=== PATIENT | male | born 1955 | race Caucasian/White ===

== ENCOUNTER 2021-04-15 22:17 | Inpatient (IN) | payer OTHER, MEDICAID, SELFPAY ==
[~2021-04-15] VITALS: Ht 172.7 cm; Wt 80.9 kg
[2021-04-15 22:17] VITALS: BP_SYST 131
[2021-04-15] MEDS ORDERED: NACL 0.9% 1,000 ML IV ONE (22:30)
[2021-04-15 23:05] LABS: CALCIUM 8.5 mg/dL (8.4-11.0); CREATININE 1.45 mg/dL (0.55-1.30); POTASSIUM 3.9 mmol/L (3.5-5.1)
[2021-04-15 23:09] LABS: INR 1.2 (0.80-1.20)
[2021-04-15 23:11] LABS: ALBUMIN 1.8 g/dL (3.4-4.8); TOTAL BILIRUBIN 2.2 mg/dL (0.0-1.0)
[2021-04-15 23:14] LABS: BASOPHILS # (AUTO) 0.1 K/uL (0.0-0.2); BASOPHILS % (AUTO) 1.4 % (0.0-2.0); EOSINOPHILS # (AUTO) 0.1 K/uL (0.0-0.4); EOSINOPHILS % (AUTO) 0.9 % (0.0-4.0); HEMATOCRIT 32.8 % (36-54); HEMOGLOBIN 11.1 g/dL (14.0-18.0); LYMPHOCYTES # (AUTO) 0.5 K/uL (1.0-5.5); LYMPHOCYTES % (AUTO) 7.3 % (20.5-51.5); MEAN CORPUSCULAR HEMOGLOBIN 33 pg (27-31); MEAN CORPUSCULAR HGB CONC 34 % (32-36); MEAN CORPUSCULAR VOLUME 98 fL (79.0-98.0); MONOCYTES # (AUTO) 0.4 K/uL (0.0-1.0); MONOCYTES % (AUTO) 6.6 % (1.7-9.3); NEUTROPHILS # (AUTO) 5.4 K/uL (1.8-7.7); NEUTROPHILS % (AUTO) 83.8 % (40.0-70.0); PLATELET COUNT (AUTO) 146 K/uL (130-430); RED BLOOD CELL COUNT(AUTO) 3.37 MIL/uL (4.2-6.2); WHITE BLOOD COUNT (AUTO) 6.4 K/uL (4.8-10.8)
[2021-04-15] MEDS ORDERED: ACETAMINOPHEN 650 MG SUPP.RECT RC ONE (23:15)
[2021-04-15 23:16] LABS: PROTHROMBIN TIME 12.8 SECS (9.5-12.5)
[2021-04-16] VITALS (12 sets, daily range): BP systolic 88–112
[2021-04-16] MEDS ORDERED: NACL 0.9% 1,000 ML IV ONE (00:15)
[2021-04-16] MEDS ORDERED: cefTRIAXone 1 GM IVPB PREMIX 50 ML IV ONE (00:15)
[2021-04-16] MEDS ORDERED: AZITHROMYCIN 500 MG in NS 250 ML IV ONE (00:15)
[2021-04-16] MEDS ORDERED: AZITHROMYCIN 500 MG/VIAL (ZITHROMAX) IV ONE (00:24)
[2021-04-16 00:40] LABS: BILIRUBIN,URINE NEGATIVE (NEGATIVE); BLOOD, URINE 2+ (NEGATIVE); CLARITY/URINE TURBID (CLEAR); COLOR,URINE YELLOW (YELLOW); GLUCOSE,URINE 3+ (NEGATIVE); KETONES,URINE NEGATIVE (NEGATIVE); LEUKOCYTE ESTERASE ,URINE 2+ (NEGATIVE); NITRITE, URINE NEGATIVE (NEGATIVE); PH,URINE 5.5 (5.0-8.0); PROTEIN URINE NEGATIVE (NEGATIVE)
[2021-04-16 00:49] LABS: RBC,URINE 20-50 /HPF (0-3); WBC,URINE 20-50 /HPF (0-3)
[2021-04-16 00:50] LABS: BACTERIA,URINE MODERATE /HPF (None Seen); YEAST,URINE Moderate /HPF (None Seen)
[2021-04-16] MEDS ORDERED: LACT10SO6 PO (02:25)
[2021-04-16] MEDS ORDERED: ROCPM1 IV (02:25)
[2021-04-16] MEDS ORDERED: CALMO120 TP (02:25)
[2021-04-16] MEDS ORDERED: ZINC50TA69 PO (02:25)
[2021-04-16] MEDS ORDERED: OXYC10TA56 PO (02:25)
[2021-04-16] MEDS ORDERED: PYRI50CA PO (02:25)
[2021-04-16] MEDS ORDERED: PRO40 PO (02:25)
[2021-04-16] MEDS ORDERED: EMPA25TA PO (02:25)
[2021-04-16] MEDS ORDERED: INSU100V9 SQ (02:25)
[2021-04-16] MEDS ORDERED: FURO-149 PO (02:25)
[2021-04-16] MEDS ORDERED: FERROUS SULFATE PO (02:25)
[2021-04-16] MEDS ORDERED: FOLI-43 PO (02:25)
[2021-04-16] MEDS ORDERED: ASCO500T20 PO (02:25)
[2021-04-16] MEDS ORDERED: ATOR40TA68 PO (02:25)
[2021-04-16] MEDS ORDERED: RIFA550T5 PO (02:25)
[2021-04-16] MEDS ORDERED: LIB10 PO (02:25)
[2021-04-16] MEDS ORDERED: SPIR50TA5 PO (02:25)
[2021-04-16] MEDS ORDERED: SSREG SUBCUT (02:25)
[2021-04-16] MEDS ORDERED: PIPERACILLIN/TAZO 3.375/DEX-IS 50 ML IV SCH (02:30)
[2021-04-16] MEDS ORDERED: LACTULOSE 20 GM/30 ML UDC RC ONE (02:45)
[2021-04-16] MEDS: LACTULOSE 20 GM/30 ML UDC PO SCH ×4 (02:45→21:20)
[2021-04-16] MEDS ORDERED: LACTULOSE 20 GM/30 ML UDC ONE ×2 (03:37→03:39)
[2021-04-16] MEDS ORDERED: PIPERACILLIN/TAZOBACTAM 3.375 GM/VIAL (ZOSYN) IV ONE ×2 (03:42→08:44)
[2021-04-16] MEDS: NACL 0.9% 1,000 ML IV SCH ×3 (03:48→22:30)
[2021-04-16] MEDS: PIPERACILLIN/TAZO 3.375/DEX-IS 50 ML IV SCH ×4 (03:50→21:20)
[2021-04-16 08:58] LABS: BASOPHILS % (AUTO) 0.3 % (0.0-2.0); EOSINOPHILS # (AUTO) 0.1 K/uL (0.0-0.4); EOSINOPHILS % (AUTO) 1.2 % (0.0-4.0); HEMATOCRIT 29.4 % (36-54); HEMOGLOBIN 9.8 g/dL (14.0-18.0); LYMPHOCYTES # (AUTO) 0.6 K/uL (1.0-5.5); LYMPHOCYTES % (AUTO) 6.6 % (20.5-51.5); MEAN CORPUSCULAR HEMOGLOBIN 33 pg (27-31); MEAN CORPUSCULAR HGB CONC 33 % (32-36); MEAN CORPUSCULAR VOLUME 99 fL (79.0-98.0); MONOCYTES # (AUTO) 0.7 K/uL (0.0-1.0); MONOCYTES % (AUTO) 7.3 % (1.7-9.3); NEUTROPHILS # (AUTO) 7.7 K/uL (1.8-7.7); NEUTROPHILS % (AUTO) 84.6 % (40.0-70.0); PLATELET COUNT (AUTO) 107 K/uL (130-430); RED BLOOD CELL COUNT(AUTO) 2.99 MIL/uL (4.2-6.2); RED CELL DISTRIBUTION WIDTH 19.5 % (9.0-15.0); WHITE BLOOD COUNT (AUTO) 9.2 K/uL (4.8-10.8)
[2021-04-16] MEDS: RIFAXIMIN 550 MG TABLET PO SCH ×2 (09:00→21:20)
[2021-04-16 09:13] LABS: ALBUMIN 1.5 g/dL (3.4-4.8); CALCIUM 7.8 mg/dL (8.4-11.0); CREATININE 1.35 mg/dL (0.55-1.30); TOTAL BILIRUBIN 2.1 mg/dL (0.0-1.0)
[2021-04-16] MEDS ORDERED: PANTOPRAZOLE SODIUM 40 MG/VIAL (PROTONIX) IVP ONE (15:00)
[2021-04-16] MEDS ORDERED: NOREPINEPHRINE BITARTRATE 4 MG in NS 246 ML IV PRN (17:45)
[2021-04-16] MEDS ORDERED: NS 500 ML IV ONE (17:45)
[2021-04-17] VITALS (24 sets, daily range): BP systolic 94–120
[2021-04-17] MEDS: PIPERACILLIN/TAZO 3.375/DEX-IS 50 ML IV SCH ×4 (03:02→20:17)
[2021-04-17] MEDS: NACL 0.9% 1,000 ML IV SCH ×2 (04:50→15:20)
[2021-04-17] MEDS: LACTULOSE 20 GM/30 ML UDC PO SCH ×3 (08:21→20:17)
[2021-04-17] MEDS: PANTOPRAZOLE SODIUM 40 MG/VIAL (PROTONIX) IVP SCH (08:21)
[2021-04-17] MEDS: RIFAXIMIN 550 MG TABLET PO SCH ×2 (08:21→20:17)
[2021-04-17] MEDS ORDERED: RIFAXIMIN 550 MG TABLET PO ONE (14:15)
[2021-04-18] VITALS (24 sets, daily range): BP systolic 93–125
[2021-04-18] MEDS: NACL 0.9% 1,000 ML IV SCH (01:46)
[2021-04-18] MEDS: PIPERACILLIN/TAZO 3.375/DEX-IS 50 ML IV SCH ×2 (01:46→08:00)
[2021-04-18 07:33] LABS: BASOPHILS % (AUTO) 0.3 % (0.0-2.0); EOSINOPHILS # (AUTO) 0.2 K/uL (0.0-0.4); EOSINOPHILS % (AUTO) 2.4 % (0.0-4.0); HEMATOCRIT 27.3 % (36-54); LYMPHOCYTES # (AUTO) 0.8 K/uL (1.0-5.5); LYMPHOCYTES % (AUTO) 12.3 % (20.5-51.5); MEAN CORPUSCULAR HEMOGLOBIN 33 pg (27-31); MEAN CORPUSCULAR HGB CONC 33 % (32-36); MEAN CORPUSCULAR VOLUME 100 fL (79.0-98.0); MONOCYTES # (AUTO) 0.3 K/uL (0.0-1.0); MONOCYTES % (AUTO) 5.4 % (1.7-9.3); NEUTROPHILS # (AUTO) 5.1 K/uL (1.8-7.7); NEUTROPHILS % (AUTO) 79.6 % (40.0-70.0); PLATELET COUNT (AUTO) 96 K/uL (130-430); RED BLOOD CELL COUNT(AUTO) 2.73 MIL/uL (4.2-6.2); RED CELL DISTRIBUTION WIDTH 19.4 % (9.0-15.0); WHITE BLOOD COUNT (AUTO) 6.4 K/uL (4.8-10.8)
[2021-04-18 08:01] LABS: ALBUMIN 1.4 g/dL (3.4-4.8); CALCIUM 8.1 mg/dL (8.4-11.0); CREATININE 1.05 mg/dL (0.55-1.30); POTASSIUM 3.1 mmol/L (3.5-5.1); TOTAL BILIRUBIN 1.9 mg/dL (0.0-1.0)
[2021-04-18] MEDS: PANTOPRAZOLE SODIUM 40 MG/VIAL (PROTONIX) IVP SCH (08:32)
[2021-04-18] MEDS: RIFAXIMIN 550 MG TABLET PO SCH ×2 (08:32→21:06)
[2021-04-18] MEDS: LACTULOSE 20 GM/30 ML UDC PO SCH ×3 (08:33→21:05)
[2021-04-18] MEDS: ACETAMINOPHEN 325 MG TABLET PO PRN (08:36)
[2021-04-18] MEDS ORDERED: POTASSIUM CHLORIDE 40 MEQ in D5W 250 ML IV ONE (10:30)
[2021-04-18] MEDS: D5W 1,000 ML IV SCH ×2 (11:12→21:05)
[2021-04-18] MEDS: MEROPENEM 1 GM in NS 100 ML IV SCH ×2 (16:34→21:06)
[2021-04-19] VITALS (20 sets, daily range): BP systolic 98–127
[2021-04-19] MEDS: MEROPENEM 1 GM in NS 100 ML IV SCH ×3 (05:18→22:00)
[2021-04-19 06:36] LABS: BASOPHILS % (AUTO) 0.4 % (0.0-2.0); EOSINOPHILS # (AUTO) 0.2 K/uL (0.0-0.4); EOSINOPHILS % (AUTO) 6.1 % (0.0-4.0); HEMATOCRIT 26.7 % (36-54); HEMOGLOBIN 8.7 g/dL (14.0-18.0); LYMPHOCYTES # (AUTO) 0.6 K/uL (1.0-5.5); LYMPHOCYTES % (AUTO) 15.5 % (20.5-51.5); MEAN CORPUSCULAR HEMOGLOBIN 33 pg (27-31); MEAN CORPUSCULAR HGB CONC 33 % (32-36); MEAN CORPUSCULAR VOLUME 101 fL (79.0-98.0); MONOCYTES # (AUTO) 0.3 K/uL (0.0-1.0); MONOCYTES % (AUTO) 8.2 % (1.7-9.3); NEUTROPHILS # (AUTO) 2.8 K/uL (1.8-7.7); NEUTROPHILS % (AUTO) 69.8 % (40.0-70.0); PLATELET COUNT (AUTO) 91 K/uL (130-430); RED BLOOD CELL COUNT(AUTO) 2.65 MIL/uL (4.2-6.2); RED CELL DISTRIBUTION WIDTH 19.6 % (9.0-15.0)
[2021-04-19 07:27] LABS: ALBUMIN 1.4 g/dL (3.4-4.8); CALCIUM 8.2 mg/dL (8.4-11.0); CREATININE 1.07 mg/dL (0.55-1.30); POTASSIUM 3.1 mmol/L (3.5-5.1); TOTAL BILIRUBIN 1.6 mg/dL (0.0-1.0)
[2021-04-19] MEDS: D5W 1,000 ML IV SCH ×2 (07:35→16:30)
[2021-04-19] MEDS: LACTULOSE 20 GM/30 ML UDC PO SCH ×2 (08:21→23:57)
[2021-04-19] MEDS: PANTOPRAZOLE SODIUM 40 MG/VIAL (PROTONIX) IVP SCH (08:21)
[2021-04-19] MEDS: RIFAXIMIN 550 MG TABLET PO SCH ×2 (08:22→23:55)
[2021-04-19] MEDS ORDERED: POTASSIUM CHLORIDE 40 MEQ in NS 250 ML IV ONE (15:45)
[2021-04-19] MEDS ORDERED: MEROPENEM 1 GM VIAL IV ONE (23:58)
[2021-04-20] MEDS ORDERED: KCL 40 mEq in 100 mL (PREMIX) 100 ML IV ONE (00:20)
[2021-04-20 02:15] VITALS: BP_SYST 127
[2021-04-20] MEDS: D5W 1,000 ML IV SCH ×3 (02:30→23:23)
[2021-04-20] MEDS ORDERED: MEROPENEM 1 GM VIAL IV ONE (06:22)
[2021-04-20] MEDS: MEROPENEM 1 GM in NS 100 ML IV SCH ×3 (06:38→23:23)
[2021-04-20 08:00] VITALS: BP_SYST 132
[2021-04-20] MEDS: RIFAXIMIN 550 MG TABLET PO SCH ×2 (08:33→23:22)
[2021-04-20] MEDS: PANTOPRAZOLE SODIUM 40 MG/VIAL (PROTONIX) IVP SCH (08:33)
[2021-04-20] MEDS: LACTULOSE 20 GM/30 ML UDC PO SCH ×2 (08:33→23:22)
[2021-04-20 11:25] VITALS: BP_SYST 122
[2021-04-20 15:24] VITALS: BP_SYST 119
[2021-04-21 00:48] VITALS: BP_SYST 124
[2021-04-21] MEDS: MEROPENEM 1 GM in NS 100 ML IV SCH ×3 (05:20→22:33)
[2021-04-21 06:53] LABS: HEMATOCRIT 28.8 % (36-54); HEMOGLOBIN 9.2 g/dL (14.0-18.0); MEAN CORPUSCULAR HEMOGLOBIN 33 pg (27-31); MEAN CORPUSCULAR HGB CONC 32 % (32-36); MEAN CORPUSCULAR VOLUME 103 fL (79.0-98.0); RED BLOOD CELL COUNT(AUTO) 2.79 MIL/uL (4.2-6.2); RED CELL DISTRIBUTION WIDTH 20.5 % (9.0-15.0); WHITE BLOOD COUNT (AUTO) 2.3 K/uL (4.8-10.8)
[2021-04-21 08:00] VITALS: BP_SYST 121
[2021-04-21 08:41] LABS: PLATELET COUNT (AUTO) 45 K/uL (130-430)
[2021-04-21] MEDS: RIFAXIMIN 550 MG TABLET PO SCH ×2 (09:16→22:32)
[2021-04-21] MEDS: PANTOPRAZOLE SODIUM 40 MG/VIAL (PROTONIX) IVP SCH (09:16)
[2021-04-21] MEDS: LACTULOSE 20 GM/30 ML UDC PO SCH ×2 (09:16→22:32)
[2021-04-21] MEDS: D5W 1,000 ML IV SCH ×2 (09:18→18:00)
[2021-04-21 09:39] LABS: ALBUMIN 1.3 g/dL (3.4-4.8); CALCIUM 8.3 mg/dL (8.4-11.0); CREATININE 1.11 mg/dL (0.55-1.30); POTASSIUM 3.4 mmol/L (3.5-5.1)
[2021-04-21 11:19] LABS: BASOPHILS % (MANUAL) 0 % (0-2); EOSINOPHILS % (MANUAL) 3 % (0-7); LYMPHOCYTES % (MANUAL) 42 % (20-46); MONOCYTES % (MANUAL) 5 % (0-11)
[2021-04-21 11:26] VITALS: BP_SYST 123
[2021-04-21 15:36] VITALS: BP_SYST 120
[2021-04-21 20:00] VITALS: BP_SYST 111
[2021-04-22] VITALS (7 sets, daily range): BP systolic 104–136
[2021-04-22] MEDS: 0.45% NACL 1,000 ML IV SCH ×3 (01:07→23:00)
[2021-04-22] MEDS: MEROPENEM 1 GM in NS 100 ML IV SCH ×3 (06:25→22:06)
[2021-04-22] MEDS: PANTOPRAZOLE SODIUM 40 MG/VIAL (PROTONIX) IVP SCH (09:00)
[2021-04-22] MEDS: LACTULOSE 20 GM/30 ML UDC PO SCH ×2 (09:00→22:06)
[2021-04-22] MEDS: RIFAXIMIN 550 MG TABLET PO SCH ×2 (09:00→22:06)
[2021-04-22 11:07] LABS: BASOPHILS % (AUTO) 0.7 % (0.0-2.0); EOSINOPHILS # (AUTO) 0.2 K/uL (0.0-0.4); EOSINOPHILS % (AUTO) 6.1 % (0.0-4.0); HEMATOCRIT 29.4 % (36-54); HEMOGLOBIN 9.4 g/dL (14.0-18.0); LYMPHOCYTES # (AUTO) 0.7 K/uL (1.0-5.5); LYMPHOCYTES % (AUTO) 24.3 % (20.5-51.5); MEAN CORPUSCULAR HEMOGLOBIN 33 pg (27-31); MEAN CORPUSCULAR HGB CONC 32 % (32-36); MEAN CORPUSCULAR VOLUME 103 fL (79.0-98.0); MONOCYTES # (AUTO) 0.2 K/uL (0.0-1.0); MONOCYTES % (AUTO) 5.7 % (1.7-9.3); NEUTROPHILS # (AUTO) 1.8 K/uL (1.8-7.7); NEUTROPHILS % (AUTO) 63.2 % (40.0-70.0); RED BLOOD CELL COUNT(AUTO) 2.84 MIL/uL (4.2-6.2); RED CELL DISTRIBUTION WIDTH 20.2 % (9.0-15.0); WHITE BLOOD COUNT (AUTO) 2.9 K/uL (4.8-10.8)
[2021-04-22 11:24] LABS: CREATININE 1.29 mg/dL (0.55-1.30)
[2021-04-22 11:27] LABS: ALBUMIN 1.4 g/dL (3.4-4.8); TOTAL BILIRUBIN 1.9 mg/dL (0.0-1.0)
[2021-04-22 11:33] LABS: PLATELET COUNT (AUTO) 45 K/uL (130-430)
[2021-04-22] MEDS ORDERED: GLUCOSE (DEXTROSE) ORAL GEL -Adults PO PRN (13:52)
[2021-04-22] MEDS ORDERED: POTASSIUM CHLORIDE 40 MEQ in NS 250 ML IV ONE (14:00)
[2021-04-22] MEDS: INSULIN REGULAR, HUMAN 100 UNITS/ML, 10 ML VIAL (humuLIN R) SUBCUT PRN ×2 (17:56→18:19)
[2021-04-23] VITALS (11 sets, daily range): BP systolic 84–120
[2021-04-23] MEDS: INSULIN REGULAR, HUMAN 100 UNITS/ML, 10 ML VIAL (humuLIN R) SUBCUT PRN ×3 (00:44→12:18)
[2021-04-23] MEDS: ACETAMINOPHEN 325 MG TABLET PO PRN ×3 (00:49→12:44)
[2021-04-23] MEDS: MEROPENEM 1 GM in NS 100 ML IV SCH ×3 (06:42→21:40)
[2021-04-23] MEDS: LACTULOSE 20 GM/30 ML UDC PO SCH ×3 (09:09→21:05)
[2021-04-23] MEDS: PANTOPRAZOLE SODIUM 40 MG/VIAL (PROTONIX) IVP SCH (09:09)
[2021-04-23] MEDS: RIFAXIMIN 550 MG TABLET PO SCH ×2 (09:09→21:05)
[2021-04-23] MEDS: ALBUTEROL SULFATE 0.083% 2.5 MG/3 ML VIAL.NEB INH PRN ×2 (10:47→13:42)
[2021-04-23 11:06] LABS: BASOPHILS # (AUTO) 0.1 K/uL (0.0-0.2); BASOPHILS % (AUTO) 0.5 % (0.0-2.0); EOSINOPHILS # (AUTO) 0.1 K/uL (0.0-0.4); EOSINOPHILS % (AUTO) 0.6 % (0.0-4.0); HEMOGLOBIN 8.5 g/dL (14.0-18.0); LYMPHOCYTES % (AUTO) 9.9 % (20.5-51.5); MEAN CORPUSCULAR HEMOGLOBIN 33 pg (27-31); MEAN CORPUSCULAR HGB CONC 32 % (32-36); MEAN CORPUSCULAR VOLUME 104 fL (79.0-98.0); MONOCYTES # (AUTO) 0.3 K/uL (0.0-1.0); MONOCYTES % (AUTO) 2.8 % (1.7-9.3); NEUTROPHILS # (AUTO) 8.5 K/uL (1.8-7.7); NEUTROPHILS % (AUTO) 86.2 % (40.0-70.0); RED BLOOD CELL COUNT(AUTO) 2.58 MIL/uL (4.2-6.2); WHITE BLOOD COUNT (AUTO) 9.9 K/uL (4.8-10.8)
[2021-04-23 11:22] LABS: CREATININE 1.99 mg/dL (0.55-1.30); POTASSIUM 4.5 mmol/L (3.5-5.1)
[2021-04-23 11:24] LABS: ALBUMIN 1.2 g/dL (3.4-4.8); TOTAL BILIRUBIN 1.8 mg/dL (0.0-1.0)
[2021-04-23 11:36] LABS: PLATELET COUNT (AUTO) 46 K/uL (130-430)
[2021-04-23] MEDS: 0.45% NACL 1,000 ML IV SCH ×2 (13:08→16:17)
[2021-04-23] MEDS ORDERED: INSULIN REGULAR, HUMAN 100 UNITS in NS 99 ML IV PRN ×2 (14:15)
[2021-04-23] MEDS ORDERED: NOREPINEPHRINE 4 MG/4 ML VIAL IV ONE ×2 (14:35→14:40)
[2021-04-23] MEDS: INSULIN REGULAR, HUMAN 100 UNITS in NS 99 ML IV PRN ×4 (15:40→21:19)
[2021-04-23] MEDS ORDERED: ALBUMIN HUMAN 5% 250 ML IV ONE ×2 (16:15→17:15)
[2021-04-23] MEDS: NOREPINEPHRINE BITARTRATE 16 MG in NS 234 ML IV PRN (16:20)
[2021-04-23 17:03] LABS: BASOPHILS # (AUTO) 0.1 K/uL (0.0-0.2); BASOPHILS % (AUTO) 0.5 % (0.0-2.0); EOSINOPHILS % (AUTO) 0.3 % (0.0-4.0); HEMATOCRIT 28.4 % (36-54); HEMOGLOBIN 8.9 g/dL (14.0-18.0); LYMPHOCYTES # (AUTO) 0.8 K/uL (1.0-5.5); LYMPHOCYTES % (AUTO) 5.2 % (20.5-51.5); MEAN CORPUSCULAR HEMOGLOBIN 33 pg (27-31); MEAN CORPUSCULAR HGB CONC 31 % (32-36); MEAN CORPUSCULAR VOLUME 104 fL (79.0-98.0); MONOCYTES # (AUTO) 0.3 K/uL (0.0-1.0); MONOCYTES % (AUTO) 1.9 % (1.7-9.3); NEUTROPHILS # (AUTO) 13.8 K/uL (1.8-7.7); NEUTROPHILS % (AUTO) 92.1 % (40.0-70.0); PLATELET COUNT (AUTO) 61 K/uL (130-430); RED BLOOD CELL COUNT(AUTO) 2.74 MIL/uL (4.2-6.2); RED CELL DISTRIBUTION WIDTH 20.1 % (9.0-15.0)
[2021-04-23] MEDS ORDERED: INSULIN REGULAR, HUMAN 100 UNITS/ML, 10 ML VIAL IVP ONE (21:00)
[2021-04-24] VITALS (22 sets, daily range): BP systolic 96–126
[2021-04-24] MEDS: 0.45% NACL 1,000 ML IV SCH (01:15)
[2021-04-24] MEDS ORDERED: VANCOMYCIN HCL 1 GM/NS PREMIX 250 ML IV ONE (01:30)
[2021-04-24] MEDS ORDERED: VANCOMYCIN HCL 500 MG/VIAL IV ONE ×2 (03:22→04:08)
[2021-04-24] MEDS ORDERED: VANCOMYCIN HCL 1000 MG/VIAL IV ONE (04:03)
[2021-04-24] MEDS: NOREPINEPHRINE BITARTRATE 16 MG in NS 234 ML IV PRN (04:46)
[2021-04-24] MEDS: MEROPENEM 1 GM in NS 100 ML IV SCH ×3 (06:04→22:56)
[2021-04-24 06:53] LABS: BASOPHILS % (AUTO) 0.4 % (0.0-2.0); EOSINOPHILS # (AUTO) 0.6 K/uL (0.0-0.4); EOSINOPHILS % (AUTO) 4.2 % (0.0-4.0); HEMATOCRIT 23.4 % (36-54); HEMOGLOBIN 7.6 g/dL (14.0-18.0); LYMPHOCYTES # (AUTO) 1.5 K/uL (1.0-5.5); LYMPHOCYTES % (AUTO) 11.3 % (20.5-51.5); MEAN CORPUSCULAR HEMOGLOBIN 32 pg (27-31); MEAN CORPUSCULAR HGB CONC 33 % (32-36); MEAN CORPUSCULAR VOLUME 99 fL (79.0-98.0); MONOCYTES # (AUTO) 0.4 K/uL (0.0-1.0); NEUTROPHILS # (AUTO) 10.9 K/uL (1.8-7.7); NEUTROPHILS % (AUTO) 81.1 % (40.0-70.0); PLATELET COUNT (AUTO) 52 K/uL (130-430); RED BLOOD CELL COUNT(AUTO) 2.36 MIL/uL (4.2-6.2); RED CELL DISTRIBUTION WIDTH 19.6 % (9.0-15.0); WHITE BLOOD COUNT (AUTO) 13.4 K/uL (4.8-10.8)
[2021-04-24] MEDS: ALBUTEROL SULFATE 0.083% 2.5 MG/3 ML VIAL.NEB INH PRN (07:54)
[2021-04-24] MEDS: PANTOPRAZOLE SODIUM 40 MG/VIAL (PROTONIX) IVP SCH (08:48)
[2021-04-24] MEDS: RIFAXIMIN 550 MG TABLET PO SCH (08:48)
[2021-04-24] MEDS: LACTULOSE 20 GM/30 ML UDC PO SCH ×3 (08:48→21:12)
[2021-04-24 09:00] LABS: POTASSIUM 3.1 mmol/L (3.5-5.1)
[2021-04-24] MEDS: INSULIN REGULAR, HUMAN 100 UNITS in NS 99 ML IV PRN ×6 (09:01→15:22)
[2021-04-24 09:14] LABS: INR 1.7 (0.80-1.20); PROTHROMBIN TIME 16.9 SECS (9.5-12.5)
[2021-04-24 10:12] LABS: ALBUMIN 1.7 g/dL (3.4-4.8); CALCIUM 9.1 mg/dL (8.4-11.0); CREATININE 1.66 mg/dL (0.55-1.30); TOTAL BILIRUBIN 2.3 mg/dL (0.0-1.0)
[2021-04-24] MEDS: KCL 40 mEq in D5W 1000 mL 1,000 ML IV SCH (12:19)
[2021-04-24] MEDS: VANCOMYCIN HCL 1,250 MG in NS 250 ML IV SCH (12:20)
[2021-04-25] VITALS (25 sets, daily range): BP systolic 92–123
[2021-04-25] MEDS: KCL 40 mEq in D5W 1000 mL 1,000 ML IV SCH ×2 (01:06→07:15)
[2021-04-25 07:01] LABS: BASOPHILS % (AUTO) 0.6 % (0.0-2.0); EOSINOPHILS # (AUTO) 0.6 K/uL (0.0-0.4); EOSINOPHILS % (AUTO) 6.6 % (0.0-4.0); HEMATOCRIT 22.6 % (36-54); HEMOGLOBIN 7.5 g/dL (14.0-18.0); LYMPHOCYTES # (AUTO) 1.5 K/uL (1.0-5.5); LYMPHOCYTES % (AUTO) 16.8 % (20.5-51.5); MEAN CORPUSCULAR HEMOGLOBIN 33 pg (27-31); MEAN CORPUSCULAR HGB CONC 33 % (32-36); MEAN CORPUSCULAR VOLUME 100 fL (79.0-98.0); MONOCYTES # (AUTO) 0.4 K/uL (0.0-1.0); NEUTROPHILS # (AUTO) 6.2 K/uL (1.8-7.7); PLATELET COUNT (AUTO) 52 K/uL (130-430); RED BLOOD CELL COUNT(AUTO) 2.27 MIL/uL (4.2-6.2); RED CELL DISTRIBUTION WIDTH 19.8 % (9.0-15.0); WHITE BLOOD COUNT (AUTO) 8.7 K/uL (4.8-10.8)
[2021-04-25] MEDS: ALBUTEROL SULFATE 0.083% 2.5 MG/3 ML VIAL.NEB INH PRN (07:44)
[2021-04-25 08:46] LABS: CREATININE 1.25 mg/dL (0.55-1.30); PHOSPHORUS 1.6 mg/dL (2.7-4.5); POTASSIUM 4.3 mmol/L (3.5-5.1)
[2021-04-25] MEDS: PANTOPRAZOLE SODIUM 40 MG/VIAL (PROTONIX) IVP SCH (09:34)
[2021-04-25] MEDS: LACTULOSE 20 GM/30 ML UDC PO SCH ×3 (09:34→21:26)
[2021-04-25 09:50] LABS: ERYTHROCYTE SEDIMENTATION RATE 60 MM/HR (0-15)
[2021-04-25 10:04] LABS: BILIRUBIN,URINE NEGATIVE (NEGATIVE); BLOOD, URINE 2+ (NEGATIVE); CLARITY/URINE CLEAR (CLEAR); COLOR,URINE YELLOW (YELLOW); GLUCOSE,URINE TRACE (NEGATIVE); KETONES,URINE TRACE (NEGATIVE); LEUKOCYTE ESTERASE ,URINE NEGATIVE (NEGATIVE); NITRITE, URINE NEGATIVE (NEGATIVE); PROTEIN URINE 1+ (NEGATIVE); UROBILINOGEN,URINE 0.2 (0.2-1.0)
[2021-04-25 10:12] LABS: BACTERIA,URINE FEW /HPF (None Seen); MUCUS,URINE 1+ /LPF (None Seen); YEAST,URINE Moderate /HPF (None Seen)
[2021-04-25] MEDS ORDERED: INSULIN REGULAR, HUMAN 100 UNITS/ML, 10 ML VIAL (humuLIN R) SUBCUT PRN (11:45)
[2021-04-25 12:09] LABS: C-REACTIVE PROTEIN QUANT 12.6 mg/dL (0-0.5)
[2021-04-25] MEDS ORDERED: K PHOS 15 MM in NS 250 ML IV ONE (13:00)
[2021-04-25] MEDS: INSULIN NPH 100 UNITS/ML 10 ML VIAL SUBCUT SCH ×2 (13:40→20:58)
[2021-04-25] MEDS: VANCOMYCIN HCL 1,250 MG in NS 250 ML IV SCH (14:33)
[2021-04-25] MEDS: INSULIN LISPRO SLIDING SCALE 100 UNITS/ML VIAL (humaLOG) SUBCUT PRN ×2 (15:25→20:56)
[2021-04-26] VITALS (23 sets, daily range): BP systolic 98–126
[2021-04-26] MEDS: INSULIN LISPRO SLIDING SCALE 100 UNITS/ML VIAL (humaLOG) SUBCUT PRN ×4 (02:20→19:26)
[2021-04-26 07:12] LABS: BASOPHILS % (AUTO) 0.6 % (0.0-2.0); EOSINOPHILS # (AUTO) 0.3 K/uL (0.0-0.4); EOSINOPHILS % (AUTO) 5.7 % (0.0-4.0); HEMATOCRIT 22.1 % (36-54); HEMOGLOBIN 7.3 g/dL (14.0-18.0); LYMPHOCYTES # (AUTO) 1.3 K/uL (1.0-5.5); LYMPHOCYTES % (AUTO) 22.1 % (20.5-51.5); MEAN CORPUSCULAR HEMOGLOBIN 33 pg (27-31); MEAN CORPUSCULAR HGB CONC 33 % (32-36); MEAN CORPUSCULAR VOLUME 100 fL (79.0-98.0); MONOCYTES # (AUTO) 0.4 K/uL (0.0-1.0); MONOCYTES % (AUTO) 6.9 % (1.7-9.3); NEUTROPHILS # (AUTO) 3.9 K/uL (1.8-7.7); NEUTROPHILS % (AUTO) 64.7 % (40.0-70.0); PLATELET COUNT (AUTO) 54 K/uL (130-430); RED BLOOD CELL COUNT(AUTO) 2.21 MIL/uL (4.2-6.2); RED CELL DISTRIBUTION WIDTH 19.9 % (9.0-15.0)
[2021-04-26 08:16] LABS: ALBUMIN 1.4 g/dL (3.4-4.8); CALCIUM 8.9 mg/dL (8.4-11.0); CREATININE 1.03 mg/dL (0.55-1.30); PHOSPHORUS 2.3 mg/dL (2.7-4.5); POTASSIUM 4.8 mmol/L (3.5-5.1); TOTAL BILIRUBIN 1.8 mg/dL (0.0-1.0)
[2021-04-26] MEDS: LACTULOSE 20 GM/30 ML UDC PO SCH ×3 (08:53→21:25)
[2021-04-26] MEDS: PANTOPRAZOLE SODIUM 40 MG/VIAL (PROTONIX) IVP SCH (08:53)
[2021-04-26] MEDS: INSULIN NPH 100 UNITS/ML 10 ML VIAL SUBCUT SCH ×2 (09:32→21:00)
[2021-04-26 10:28] LABS: C-REACTIVE PROTEIN QUANT 10.2 mg/dL (0-0.5)
[2021-04-26 11:25] LABS: ERYTHROCYTE SEDIMENTATION RATE 58 MM/HR (0-15)
[2021-04-26] MEDS: VANCOMYCIN HCL 1,250 MG in NS 250 ML IV SCH (13:21)
[2021-04-26] MEDS ORDERED: IBUPROFEN 400 MG TABLET PO ONE (18:30)
[2021-04-26] MEDS: ACETAMINOPHEN 325 MG TABLET PO PRN (22:16)
[2021-04-27] VITALS (17 sets, daily range): BP systolic 93–162
[2021-04-27] MEDS: NOREPINEPHRINE BITARTRATE 16 MG in NS 234 ML IV PRN ×2 (01:57→11:58)
[2021-04-27] MEDS: ACETAMINOPHEN 325 MG TABLET PO PRN ×2 (05:04→05:05)
[2021-04-27] MEDS: INSULIN LISPRO SLIDING SCALE 100 UNITS/ML VIAL (humaLOG) SUBCUT PRN ×4 (06:33→22:49)
[2021-04-27] MEDS: MEROPENEM 1 GM in NS 100 ML IV SCH ×3 (07:14→21:06)
[2021-04-27] MEDS: PANTOPRAZOLE SODIUM 40 MG/VIAL (PROTONIX) IVP SCH (08:37)
[2021-04-27] MEDS: LACTULOSE 20 GM/30 ML UDC PO SCH ×3 (08:37→21:06)
[2021-04-27] MEDS: INSULIN NPH 100 UNITS/ML 10 ML VIAL SUBCUT SCH (08:39)
[2021-04-27] MEDS: VANCOMYCIN HCL 1,000 MG in NS 250 ML IV SCH (17:38)
[2021-04-27 20:53] LABS: BILIRUBIN,URINE NEGATIVE (NEGATIVE); BLOOD, URINE 2+ (NEGATIVE); CLARITY/URINE CLOUDY (CLEAR); COLOR,URINE YELLOW (YELLOW); GLUCOSE,URINE NEGATIVE (NEGATIVE); KETONES,URINE NEGATIVE (NEGATIVE); LEUKOCYTE ESTERASE ,URINE 1+ (NEGATIVE); NITRITE, URINE NEGATIVE (NEGATIVE); PH,URINE 5.5 (5.0-8.0); PROTEIN URINE TRACE (NEGATIVE)
[2021-04-27] MEDS ORDERED: INSULIN NPH 100 UNITS/ML 10 ML VIAL SUBCUT SCH (21:00)
[2021-04-27 22:24] LABS: BACTERIA,URINE FEW /HPF (None Seen); WBC,URINE 50-80 /HPF (0-3)
[2021-04-27 22:25] LABS: MUCUS,URINE None Seen /LPF (None Seen); YEAST,URINE Many /HPF (None Seen)
[2021-04-28] VITALS (19 sets, daily range): BP systolic 106–143
[2021-04-28] MEDS: INSULIN LISPRO SLIDING SCALE 100 UNITS/ML VIAL (humaLOG) SUBCUT PRN ×5 (03:44→18:58)
[2021-04-28] MEDS: MEROPENEM 1 GM in NS 100 ML IV SCH ×3 (05:38→22:07)
[2021-04-28 06:34] LABS: BASOPHILS # (AUTO) 0.1 K/uL (0.0-0.2); EOSINOPHILS # (AUTO) 0.3 K/uL (0.0-0.4); EOSINOPHILS % (AUTO) 5.5 % (0.0-4.0); HEMATOCRIT 22.2 % (36-54); HEMOGLOBIN 7.1 g/dL (14.0-18.0); LYMPHOCYTES # (AUTO) 1.2 K/uL (1.0-5.5); LYMPHOCYTES % (AUTO) 23.4 % (20.5-51.5); MEAN CORPUSCULAR HEMOGLOBIN 33 pg (27-31); MEAN CORPUSCULAR HGB CONC 32 % (32-36); MEAN CORPUSCULAR VOLUME 101 fL (79.0-98.0); MONOCYTES # (AUTO) 0.5 K/uL (0.0-1.0); MONOCYTES % (AUTO) 10.2 % (1.7-9.3); NEUTROPHILS # (AUTO) 3.1 K/uL (1.8-7.7); NEUTROPHILS % (AUTO) 59.9 % (40.0-70.0); PLATELET COUNT (AUTO) 74 K/uL (130-430); RED BLOOD CELL COUNT(AUTO) 2.19 MIL/uL (4.2-6.2); RED CELL DISTRIBUTION WIDTH 19.8 % (9.0-15.0); WHITE BLOOD COUNT (AUTO) 5.2 K/uL (4.8-10.8)
[2021-04-28 07:50] LABS: ALBUMIN 1.4 g/dL (3.4-4.8); CALCIUM 8.6 mg/dL (8.4-11.0); CREATININE 1.6 mg/dL (0.55-1.30); POTASSIUM 5.1 mmol/L (3.5-5.1); TOTAL BILIRUBIN 1.8 mg/dL (0.0-1.0)
[2021-04-28] MEDS: PANTOPRAZOLE SODIUM 40 MG/VIAL (PROTONIX) IVP SCH (08:45)
[2021-04-28] MEDS: LACTULOSE 20 GM/30 ML UDC PO SCH ×3 (08:45→22:06)
[2021-04-28] MEDS ORDERED: METOCLOPRAMIDE HCL 10 MG/2 ML VIAL IVP ONE (09:30)
[2021-04-28] MEDS: INSULIN NPH 100 UNITS/ML 10 ML VIAL SUBCUT SCH ×2 (10:55→22:06)
[2021-04-28] MEDS: D5W 1,000 ML IV SCH (11:53)
[2021-04-28] MEDS: METOCLOPRAMIDE HCL 10 MG/2 ML VIAL IVP SCH ×2 (13:26→22:07)
[2021-04-28] MEDS ORDERED: METOCLOPRAMIDE HCL 10 MG/2 ML VIAL IVP SCH (14:00)
[2021-04-28] MEDS: VANCOMYCIN HCL 1,000 MG in NS 250 ML IV SCH (16:06)
[2021-04-28] MEDS: NOREPINEPHRINE BITARTRATE 16 MG in NS 234 ML IV PRN (18:55)
[2021-04-29] VITALS (23 sets, daily range): BP systolic 105–126
[2021-04-29] MEDS: INSULIN LISPRO SLIDING SCALE 100 UNITS/ML VIAL (humaLOG) SUBCUT PRN ×4 (01:15→15:55)
[2021-04-29] MEDS: D5W 1,000 ML IV SCH ×3 (03:54→15:57)
[2021-04-29] MEDS: MEROPENEM 1 GM in NS 100 ML IV SCH ×3 (05:32→22:00)
[2021-04-29] MEDS: METOCLOPRAMIDE HCL 10 MG/2 ML VIAL IVP SCH ×3 (05:57→22:00)
[2021-04-29] MEDS: PANTOPRAZOLE SODIUM 40 MG/VIAL (PROTONIX) IVP SCH (08:22)
[2021-04-29] MEDS: LACTULOSE 20 GM/30 ML UDC PO SCH ×3 (08:22→22:00)
[2021-04-29] MEDS: INSULIN NPH 100 UNITS/ML 10 ML VIAL SUBCUT SCH ×2 (08:51→22:37)
[2021-04-29 15:13] LABS: RED BLOOD CELL COUNT(AUTO) 1.99 MIL/uL (4.2-6.2)
[2021-04-29 15:20] LABS: HEMATOCRIT 20.2 % (36-54)
[2021-04-29 15:21] LABS: MEAN CORPUSCULAR HEMOGLOBIN 33 pg (27-31); MEAN CORPUSCULAR HGB CONC 32 % (32-36); MEAN CORPUSCULAR VOLUME 101 fL (79.0-98.0); PLATELET COUNT (AUTO) 79 K/uL (130-430)
[2021-04-29 15:22] LABS: BASOPHILS % (AUTO) 1.1 % (0.0-2.0); EOSINOPHILS % (AUTO) 10.1 % (0.0-4.0); LYMPHOCYTES # (AUTO) 1.2 K/uL (1.0-5.5); MONOCYTES % (AUTO) 12.1 % (1.7-9.3); NEUTROPHILS # (AUTO) 2.6 K/uL (1.8-7.7); NEUTROPHILS % (AUTO) 52.7 % (40.0-70.0)
[2021-04-29 15:23] LABS: BASOPHILS # (AUTO) 0.1 K/uL (0.0-0.2); EOSINOPHILS # (AUTO) 0.5 K/uL (0.0-0.4); MONOCYTES # (AUTO) 0.6 K/uL (0.0-1.0)
[2021-04-29 15:27] LABS: POTASSIUM 4.2 mmol/L (3.5-5.1)
[2021-04-29 15:31] LABS: CALCIUM 8.7 mg/dL (8.4-11.0); CREATININE 1.62 mg/dL (0.55-1.30)
[2021-04-29 15:32] LABS: TOTAL BILIRUBIN 1.1 mg/dL (0.0-1.0)
[2021-04-29 15:33] LABS: ALBUMIN 1.3 g/dL (3.4-4.8)
[2021-04-29] MEDS: VANCOMYCIN HCL 1,000 MG in NS 250 ML IV SCH (15:37)
[2021-04-29 21:52] LABS: HEMOGLOBIN 6.5 g/dL (14.0-18.0)
[2021-04-30] VITALS (27 sets, daily range): BP systolic 92–148
[2021-04-30] MEDS: D5W 1,000 ML IV SCH ×3 (01:19→21:50)
[2021-04-30] MEDS: FLUCONAZOLE 100 mg/ NS 50 ML IV SCH ×3 (01:45→12:30)
[2021-04-30] MEDS: INSULIN LISPRO SLIDING SCALE 100 UNITS/ML VIAL (humaLOG) SUBCUT PRN (03:31)
[2021-04-30 07:00] LABS: BASOPHILS % (AUTO) 0.6 % (0.0-2.0); EOSINOPHILS # (AUTO) 0.5 K/uL (0.0-0.4); EOSINOPHILS % (AUTO) 10.4 % (0.0-4.0); HEMATOCRIT 23.6 % (36-54); HEMOGLOBIN 7.5 g/dL (14.0-18.0); LYMPHOCYTES # (AUTO) 0.9 K/uL (1.0-5.5); LYMPHOCYTES % (AUTO) 19.1 % (20.5-51.5); MEAN CORPUSCULAR HEMOGLOBIN 32 pg (27-31); MEAN CORPUSCULAR HGB CONC 32 % (32-36); MEAN CORPUSCULAR VOLUME 101 fL (79.0-98.0); MONOCYTES # (AUTO) 0.3 K/uL (0.0-1.0); MONOCYTES % (AUTO) 6.6 % (1.7-9.3); NEUTROPHILS # (AUTO) 3.1 K/uL (1.8-7.7); NEUTROPHILS % (AUTO) 63.3 % (40.0-70.0); PLATELET COUNT (AUTO) 76 K/uL (130-430); RED BLOOD CELL COUNT(AUTO) 2.33 MIL/uL (4.2-6.2); RED CELL DISTRIBUTION WIDTH 19.8 % (9.0-15.0); WHITE BLOOD COUNT (AUTO) 4.9 K/uL (4.8-10.8)
[2021-04-30] MEDS: MEROPENEM 1 GM in NS 100 ML IV SCH ×3 (07:04→21:55)
[2021-04-30] MEDS: METOCLOPRAMIDE HCL 10 MG/2 ML VIAL IVP SCH ×3 (07:05→21:55)
[2021-04-30] MEDS ORDERED: FLUCONAZOLE 100 mg/ NS 50 ML IV SCH (07:45)
[2021-04-30 07:57] LABS: ALBUMIN 1.2 g/dL (3.4-4.8); CALCIUM 8.6 mg/dL (8.4-11.0); CREATININE 1.47 mg/dL (0.55-1.30); POTASSIUM 4.7 mmol/L (3.5-5.1)
[2021-04-30] MEDS: LACTULOSE 20 GM/30 ML UDC PO SCH ×3 (08:46→21:00)
[2021-04-30] MEDS: PANTOPRAZOLE SODIUM 40 MG/VIAL (PROTONIX) IVP SCH (08:47)
[2021-04-30] MEDS: INSULIN NPH 100 UNITS/ML 10 ML VIAL SUBCUT SCH ×2 (09:00→21:00)
[2021-04-30] MEDS ORDERED: MIDAZOLAM IN NACL,ISO-OSMOT/PF 100 ML IV PRN (11:00)
[2021-04-30] MEDS ORDERED: NALOXONE HCL 0.4 MG/ML AMP (NARCAN) IVP PRN (11:00)
[2021-04-30] MEDS ORDERED: ETOMIDATE 20 MG/ 10 ML VIAL (AMIDATE) IVP ONE (12:50)
[2021-04-30] MEDS ORDERED: ROCURONIUM BROMIDE 10 MG/ML (ZEMURON) IV ONE (12:50)
[2021-05-01] VITALS (30 sets, daily range): BP systolic 100–159
[2021-05-01] MEDS: METOCLOPRAMIDE HCL 10 MG/2 ML VIAL IVP SCH ×3 (06:52→21:46)
[2021-05-01] MEDS: MEROPENEM 1 GM in NS 100 ML IV SCH ×3 (07:04→21:45)
[2021-05-01] MEDS: D5W 1,000 ML IV SCH ×2 (07:05→12:08)
[2021-05-01] MEDS: FLUCONAZOLE 100 mg/ NS 50 ML IV SCH (08:19)
[2021-05-01] MEDS: PANTOPRAZOLE SODIUM 40 MG/VIAL (PROTONIX) IVP SCH (08:19)
[2021-05-01] MEDS: LACTULOSE 20 GM/30 ML UDC PO SCH ×3 (08:19→21:45)
[2021-05-01 09:42] LABS: BASOPHILS % (AUTO) 0.5 % (0.0-2.0); EOSINOPHILS # (AUTO) 0.9 K/uL (0.0-0.4); EOSINOPHILS % (AUTO) 10.5 % (0.0-4.0); HEMATOCRIT 26.1 % (36-54); HEMOGLOBIN 8.3 g/dL (14.0-18.0); LYMPHOCYTES # (AUTO) 1.7 K/uL (1.0-5.5); LYMPHOCYTES % (AUTO) 20.7 % (20.5-51.5); MEAN CORPUSCULAR HEMOGLOBIN 33 pg (27-31); MEAN CORPUSCULAR HGB CONC 32 % (32-36); MEAN CORPUSCULAR VOLUME 103 fL (79.0-98.0); MONOCYTES # (AUTO) 0.8 K/uL (0.0-1.0); MONOCYTES % (AUTO) 9.3 % (1.7-9.3); NEUTROPHILS # (AUTO) 4.8 K/uL (1.8-7.7); PLATELET COUNT (AUTO) 86 K/uL (130-430); RED BLOOD CELL COUNT(AUTO) 2.52 MIL/uL (4.2-6.2); RED CELL DISTRIBUTION WIDTH 21.2 % (9.0-15.0); WHITE BLOOD COUNT (AUTO) 8.2 K/uL (4.8-10.8)
[2021-05-01 10:12] LABS: ALBUMIN 1.2 g/dL (3.4-4.8); CREATININE 1.27 mg/dL (0.55-1.30); POTASSIUM 4.8 mmol/L (3.5-5.1); TOTAL BILIRUBIN 1.2 mg/dL (0.0-1.0)
[2021-05-01] MEDS: INSULIN LISPRO SLIDING SCALE 100 UNITS/ML VIAL (humaLOG) SUBCUT PRN (19:29)
[2021-05-01] MEDS: INSULIN NPH 100 UNITS/ML 10 ML VIAL SUBCUT SCH (21:50)
[2021-05-02] VITALS (33 sets, daily range): BP systolic 114–151
[2021-05-02] MEDS: D5W 1,000 ML IV SCH ×2 (03:19→13:24)
[2021-05-02] MEDS: MEROPENEM 1 GM in NS 100 ML IV SCH ×3 (06:18→21:52)
[2021-05-02] MEDS: METOCLOPRAMIDE HCL 10 MG/2 ML VIAL IVP SCH ×3 (06:18→21:53)
[2021-05-02] MEDS: MORPHINE SULFATE IN 0.9 % NACL 100 ML IV PRN (06:21)
[2021-05-02 07:14] LABS: BASOPHILS % (AUTO) 0.6 % (0.0-2.0); EOSINOPHILS # (AUTO) 0.7 K/uL (0.0-0.4); EOSINOPHILS % (AUTO) 10.2 % (0.0-4.0); HEMATOCRIT 23.7 % (36-54); HEMOGLOBIN 7.7 g/dL (14.0-18.0); LYMPHOCYTES # (AUTO) 1.3 K/uL (1.0-5.5); LYMPHOCYTES % (AUTO) 19.6 % (20.5-51.5); MEAN CORPUSCULAR HEMOGLOBIN 33 pg (27-31); MEAN CORPUSCULAR HGB CONC 33 % (32-36); MEAN CORPUSCULAR VOLUME 102 fL (79.0-98.0); MONOCYTES # (AUTO) 0.7 K/uL (0.0-1.0); NEUTROPHILS # (AUTO) 3.9 K/uL (1.8-7.7); NEUTROPHILS % (AUTO) 59.6 % (40.0-70.0); PLATELET COUNT (AUTO) 79 K/uL (130-430); RED BLOOD CELL COUNT(AUTO) 2.33 MIL/uL (4.2-6.2); RED CELL DISTRIBUTION WIDTH 21.9 % (9.0-15.0); WHITE BLOOD COUNT (AUTO) 6.5 K/uL (4.8-10.8)
[2021-05-02 09:05] LABS: CALCIUM 7.7 mg/dL (8.4-11.0); CREATININE 1.25 mg/dL (0.55-1.30); TOTAL BILIRUBIN 1.5 mg/dL (0.0-1.0)
[2021-05-02] MEDS: PANTOPRAZOLE SODIUM 40 MG/VIAL (PROTONIX) IVP SCH (10:11)
[2021-05-02] MEDS: LACTULOSE 20 GM/30 ML UDC PO SCH ×3 (10:11→21:00)
[2021-05-02] MEDS: INSULIN NPH 100 UNITS/ML 10 ML VIAL SUBCUT SCH ×2 (10:23→21:00)
[2021-05-02] MEDS: FLUCONAZOLE 100 mg/ NS 50 ML IV SCH (10:24)
[2021-05-02] MEDS: VANCOMYCIN HCL 750 MG in NS 250 ML IV SCH (13:15)
[2021-05-03] VITALS (35 sets, daily range): BP systolic 110–151
[2021-05-03] MEDS: MEROPENEM 1 GM in NS 100 ML IV SCH ×3 (06:32→21:07)
[2021-05-03] MEDS: METOCLOPRAMIDE HCL 10 MG/2 ML VIAL IVP SCH ×2 (06:33→14:01)
[2021-05-03] MEDS: D5W 1,000 ML IV SCH (08:14)
[2021-05-03] MEDS: LACTULOSE 20 GM/30 ML UDC PO SCH ×3 (09:57→21:06)
[2021-05-03] MEDS: FLUCONAZOLE 100 mg/ NS 50 ML IV SCH (09:57)
[2021-05-03] MEDS: PANTOPRAZOLE SODIUM 40 MG/VIAL (PROTONIX) IVP SCH (09:57)
[2021-05-03] MEDS: INSULIN NPH 100 UNITS/ML 10 ML VIAL SUBCUT SCH (09:58)
[2021-05-03] MEDS: VANCOMYCIN HCL 750 MG in NS 250 ML IV SCH (11:10)
[2021-05-03] MEDS ORDERED: DEXTROSE 50% JECT 50 ML DISP.SYRIN IVP ONE (15:30)
[2021-05-03] MEDS: DEXTROSE 50% JECT 50 ML DISP.SYRIN IVP PRN (15:34)
[2021-05-03] MEDS ORDERED: INSULIN NPH 100 UNITS/ML 10 ML VIAL SUBCUT SCH (21:00)
[2021-05-03] MEDS: FUROSEMIDE 20 MG/2 ML VIAL IVP SCH (21:06)
[2021-05-04] VITALS (36 sets, daily range): BP systolic 126–158
[2021-05-04] MEDS: METOCLOPRAMIDE HCL 10 MG/2 ML VIAL IVP SCH ×4 (00:31→21:59)
[2021-05-04] MEDS: MORPHINE SULFATE IN 0.9 % NACL 100 ML IV PRN (02:00)
[2021-05-04] MEDS: D5W 1,000 ML IV SCH (04:42)
[2021-05-04] MEDS: MEROPENEM 1 GM in NS 100 ML IV SCH ×3 (06:38→22:03)
[2021-05-04] MEDS: INSULIN LISPRO SLIDING SCALE 100 UNITS/ML VIAL (humaLOG) SUBCUT PRN ×4 (06:38→23:56)
[2021-05-04] MEDS: PANTOPRAZOLE SODIUM 40 MG/VIAL (PROTONIX) IVP SCH (09:00)
[2021-05-04] MEDS: FLUCONAZOLE 100 mg/ NS 50 ML IV SCH (09:00)
[2021-05-04] MEDS: LACTULOSE 20 GM/30 ML UDC PO SCH ×3 (09:00→21:59)
[2021-05-04] MEDS: FUROSEMIDE 20 MG/2 ML VIAL IVP SCH ×2 (10:27→22:02)
[2021-05-04] MEDS: INSULIN NPH 100 UNITS/ML 10 ML VIAL SUBCUT SCH ×2 (11:17→21:30)
[2021-05-04] MEDS: VANCOMYCIN HCL 750 MG in NS 250 ML IV SCH (11:35)
[2021-05-04 16:58] LABS: CALCIUM 7.9 mg/dL (8.4-11.0); CREATININE 1.32 mg/dL (0.55-1.30); POTASSIUM 4.7 mmol/L (3.5-5.1)
[2021-05-05] VITALS (26 sets, daily range): BP systolic 115–166
[2021-05-05] MEDS: D5W 1,000 ML IV SCH ×2 (00:06→20:06)
[2021-05-05] MEDS: INSULIN LISPRO SLIDING SCALE 100 UNITS/ML VIAL (humaLOG) SUBCUT PRN ×4 (06:39→23:20)
[2021-05-05] MEDS: METOCLOPRAMIDE HCL 10 MG/2 ML VIAL IVP SCH ×3 (06:58→21:41)
[2021-05-05] MEDS: MEROPENEM 1 GM in NS 100 ML IV SCH ×3 (06:58→21:41)
[2021-05-05 06:59] LABS: BASOPHILS % (AUTO) 0.2 % (0.0-2.0); EOSINOPHILS # (AUTO) 1.7 K/uL (0.0-0.4); EOSINOPHILS % (AUTO) 22.6 % (0.0-4.0); HEMATOCRIT 22.9 % (36-54); HEMOGLOBIN 7.4 g/dL (14.0-18.0); LYMPHOCYTES # (AUTO) 1.7 K/uL (1.0-5.5); LYMPHOCYTES % (AUTO) 22.6 % (20.5-51.5); MEAN CORPUSCULAR HEMOGLOBIN 32 pg (27-31); MEAN CORPUSCULAR HGB CONC 32 % (32-36); MEAN CORPUSCULAR VOLUME 99 fL (79.0-98.0); MONOCYTES # (AUTO) 0.6 K/uL (0.0-1.0); MONOCYTES % (AUTO) 8.5 % (1.7-9.3); NEUTROPHILS # (AUTO) 3.5 K/uL (1.8-7.7); NEUTROPHILS % (AUTO) 46.1 % (40.0-70.0); PLATELET COUNT (AUTO) 111 K/uL (130-430); RED BLOOD CELL COUNT(AUTO) 2.31 MIL/uL (4.2-6.2); RED CELL DISTRIBUTION WIDTH 21.8 % (9.0-15.0); WHITE BLOOD COUNT (AUTO) 7.5 K/uL (4.8-10.8)
[2021-05-05] MEDS: INSULIN NPH 100 UNITS/ML 10 ML VIAL SUBCUT SCH ×2 (08:51→20:36)
[2021-05-05] MEDS: FLUCONAZOLE 100 mg/ NS 50 ML IV SCH (08:56)
[2021-05-05] MEDS: LACTULOSE 20 GM/30 ML UDC PO SCH ×3 (08:57→20:34)
[2021-05-05] MEDS: FUROSEMIDE 20 MG/2 ML VIAL IVP SCH ×2 (08:58→20:34)
[2021-05-05] MEDS: PANTOPRAZOLE SODIUM 40 MG/VIAL (PROTONIX) IVP SCH (08:58)
[2021-05-05 09:09] LABS: ALBUMIN 0.8 g/dL (3.4-4.8); CALCIUM 7.8 mg/dL (8.4-11.0); CREATININE 1.38 mg/dL (0.55-1.30); POTASSIUM 4.5 mmol/L (3.5-5.1); TOTAL BILIRUBIN 1.3 mg/dL (0.0-1.0)
[2021-05-05] MEDS: VANCOMYCIN HCL 750 MG in NS 250 ML IV SCH (12:00)
[2021-05-06] VITALS (25 sets, daily range): BP systolic 94–144
[2021-05-06] MEDS: D5W 1,000 ML IV SCH (03:19)
[2021-05-06] MEDS: METOCLOPRAMIDE HCL 10 MG/2 ML VIAL IVP SCH ×3 (05:19→21:38)
[2021-05-06] MEDS: MEROPENEM 1 GM in NS 100 ML IV SCH ×3 (05:19→21:38)
[2021-05-06] MEDS: LACTULOSE 20 GM/30 ML UDC PO SCH ×3 (08:49→21:32)
[2021-05-06] MEDS: PANTOPRAZOLE SODIUM 40 MG/VIAL (PROTONIX) IVP SCH (08:49)
[2021-05-06] MEDS: FLUCONAZOLE 100 mg/ NS 50 ML IV SCH (08:49)
[2021-05-06] MEDS: INSULIN NPH 100 UNITS/ML 10 ML VIAL SUBCUT SCH ×2 (08:53→21:00)
[2021-05-06] MEDS: FUROSEMIDE 20 MG/2 ML VIAL IVP SCH ×2 (09:00→21:33)
[2021-05-06 09:57] LABS: BASOPHILS % (AUTO) 0.3 % (0.0-2.0); EOSINOPHILS # (AUTO) 1.3 K/uL (0.0-0.4); EOSINOPHILS % (AUTO) 20.2 % (0.0-4.0); HEMATOCRIT 22.5 % (36-54); HEMOGLOBIN 7.5 g/dL (14.0-18.0); LYMPHOCYTES # (AUTO) 0.9 K/uL (1.0-5.5); LYMPHOCYTES % (AUTO) 13.1 % (20.5-51.5); MEAN CORPUSCULAR HEMOGLOBIN 33 pg (27-31); MEAN CORPUSCULAR HGB CONC 33 % (32-36); MEAN CORPUSCULAR VOLUME 98 fL (79.0-98.0); MONOCYTES # (AUTO) 0.6 K/uL (0.0-1.0); MONOCYTES % (AUTO) 9.9 % (1.7-9.3); NEUTROPHILS # (AUTO) 3.7 K/uL (1.8-7.7); NEUTROPHILS % (AUTO) 56.5 % (40.0-70.0); PLATELET COUNT (AUTO) 108 K/uL (130-430); RED BLOOD CELL COUNT(AUTO) 2.29 MIL/uL (4.2-6.2); RED CELL DISTRIBUTION WIDTH 22.1 % (9.0-15.0); WHITE BLOOD COUNT (AUTO) 6.6 K/uL (4.8-10.8)
[2021-05-06 10:09] LABS: CALCIUM 8.2 mg/dL (8.4-11.0); CREATININE 1.36 mg/dL (0.55-1.30)
[2021-05-07] VITALS (31 sets, daily range): BP systolic 93–121
[2021-05-07] MEDS: METOCLOPRAMIDE HCL 10 MG/2 ML VIAL IVP SCH ×3 (05:44→21:41)
[2021-05-07] MEDS: MEROPENEM 1 GM in NS 100 ML IV SCH ×3 (05:44→21:41)
[2021-05-07] MEDS: INSULIN LISPRO SLIDING SCALE 100 UNITS/ML VIAL (humaLOG) SUBCUT PRN ×3 (06:39→18:17)
[2021-05-07] MEDS: PANTOPRAZOLE SODIUM 40 MG/VIAL (PROTONIX) IVP SCH (09:30)
[2021-05-07] MEDS: FUROSEMIDE 20 MG/2 ML VIAL IVP SCH ×2 (09:31→20:54)
[2021-05-07] MEDS: LACTULOSE 20 GM/30 ML UDC PO SCH ×3 (09:32→20:53)
[2021-05-07] MEDS: INSULIN NPH 100 UNITS/ML 10 ML VIAL SUBCUT SCH ×2 (09:35→20:57)
[2021-05-07] MEDS: D5W 1,000 ML IV SCH (12:06)
[2021-05-08] VITALS (35 sets, daily range): BP systolic 90–123
[2021-05-08] MEDS: D5W 1,000 ML IV SCH (04:14)
[2021-05-08] MEDS: MEROPENEM 1 GM in NS 100 ML IV SCH ×3 (05:37→22:21)
[2021-05-08] MEDS: METOCLOPRAMIDE HCL 10 MG/2 ML VIAL IVP SCH ×3 (05:37→22:21)
[2021-05-08 06:52] LABS: MEAN CORPUSCULAR HEMOGLOBIN 32 pg (27-31); MEAN CORPUSCULAR HGB CONC 33 % (32-36); MEAN CORPUSCULAR VOLUME 98 fL (79.0-98.0); PLATELET COUNT (AUTO) 116 K/uL (130-430); RED BLOOD CELL COUNT(AUTO) 2.14 MIL/uL (4.2-6.2); RED CELL DISTRIBUTION WIDTH 21.9 % (9.0-15.0); WHITE BLOOD COUNT (AUTO) 7.3 K/uL (4.8-10.8)
[2021-05-08 07:22] LABS: ALBUMIN 0.8 g/dL (3.4-4.8); CALCIUM 7.8 mg/dL (8.4-11.0); CREATININE 1.22 mg/dL (0.55-1.30); TOTAL BILIRUBIN 0.9 mg/dL (0.0-1.0)
[2021-05-08] MEDS: LACTULOSE 20 GM/30 ML UDC PO SCH ×3 (08:55→21:07)
[2021-05-08] MEDS: PANTOPRAZOLE SODIUM 40 MG/VIAL (PROTONIX) IVP SCH (08:55)
[2021-05-08] MEDS: FUROSEMIDE 20 MG/2 ML VIAL IVP SCH ×2 (08:55→21:07)
[2021-05-08] MEDS: BALSAM PERU/CASTOR OIL 60 GM OINT...G. TP SCH (08:56)
[2021-05-08] MEDS: INSULIN NPH 100 UNITS/ML 10 ML VIAL SUBCUT SCH ×2 (09:00→21:14)
[2021-05-08 09:17] LABS: HEMOGLOBIN 6.9 g/dL (14.0-18.0)
[2021-05-08 11:32] LABS: POTASSIUM 2.5 mmol/L (3.5-5.1)
[2021-05-08] MEDS ORDERED: KCL 40 mEq in 100 mL (PREMIX) 100 ML IV ONE (11:45)
[2021-05-08 12:42] LABS: ATYPICAL LYMPHOCYTES % 1 % (0-0); BAND % (MANUAL) 2 % (0-6); BASOPHILS % (MANUAL) 0 % (0-2); EOSINOPHILS % (MANUAL) 38 % (0-7); LYMPHOCYTES % (MANUAL) 8 % (20-46); MONOCYTES % (MANUAL) 6 % (0-11)
[2021-05-08] MEDS ORDERED: POTASSIUM CHLORIDE 40 MEQ in NS 250 ML IV ONE (13:00)
[2021-05-08] MEDS: INSULIN LISPRO SLIDING SCALE 100 UNITS/ML VIAL (humaLOG) SUBCUT PRN (18:40)
[2021-05-09] VITALS (35 sets, daily range): BP systolic 90–141
[2021-05-09] MEDS: D5W 1,000 ML IV SCH (04:03)
[2021-05-09] MEDS: MEROPENEM 1 GM in NS 100 ML IV SCH ×3 (06:19→22:31)
[2021-05-09] MEDS: METOCLOPRAMIDE HCL 10 MG/2 ML VIAL IVP SCH ×3 (06:19→22:30)
[2021-05-09] MEDS: INSULIN LISPRO SLIDING SCALE 100 UNITS/ML VIAL (humaLOG) SUBCUT PRN ×3 (06:21→18:15)
[2021-05-09] MEDS: INSULIN NPH 100 UNITS/ML 10 ML VIAL SUBCUT SCH ×2 (08:48→21:20)
[2021-05-09] MEDS: PANTOPRAZOLE SODIUM 40 MG/VIAL (PROTONIX) IVP SCH (08:48)
[2021-05-09] MEDS: FUROSEMIDE 20 MG/2 ML VIAL IVP SCH ×2 (08:49→21:18)
[2021-05-09] MEDS: LACTULOSE 20 GM/30 ML UDC PO SCH ×3 (08:49→21:18)
[2021-05-09 09:15] LABS: BASOPHILS % (AUTO) 0.2 % (0.0-2.0); EOSINOPHILS # (AUTO) 4.1 K/uL (0.0-0.4); EOSINOPHILS % (AUTO) 44.5 % (0.0-4.0); HEMATOCRIT 28.4 % (36-54); HEMOGLOBIN 9.5 g/dL (14.0-18.0); LYMPHOCYTES # (AUTO) 1.3 K/uL (1.0-5.5); LYMPHOCYTES % (AUTO) 13.7 % (20.5-51.5); MEAN CORPUSCULAR HEMOGLOBIN 32 pg (27-31); MEAN CORPUSCULAR HGB CONC 34 % (32-36); MEAN CORPUSCULAR VOLUME 95 fL (79.0-98.0); MONOCYTES # (AUTO) 0.8 K/uL (0.0-1.0); MONOCYTES % (AUTO) 8.3 % (1.7-9.3); NEUTROPHILS % (AUTO) 33.3 % (40.0-70.0); PLATELET COUNT (AUTO) 131 K/uL (130-430); RED BLOOD CELL COUNT(AUTO) 2.98 MIL/uL (4.2-6.2); RED CELL DISTRIBUTION WIDTH 20.4 % (9.0-15.0); WHITE BLOOD COUNT (AUTO) 9.1 K/uL (4.8-10.8)
[2021-05-09] MEDS: BALSAM PERU/CASTOR OIL 60 GM OINT...G. TP SCH (09:50)
[2021-05-09 10:15] LABS: CALCIUM 7.8 mg/dL (8.4-11.0); CREATININE 1.16 mg/dL (0.55-1.30); PHOSPHORUS 3.8 mg/dL (2.7-4.5); POTASSIUM 3.1 mmol/L (3.5-5.1)
[2021-05-09 12:10] LABS: C-REACTIVE PROTEIN QUANT 5.1 mg/dL (0-0.5)
[2021-05-09] MEDS ORDERED: POTASSIUM CHLORIDE 40 MEQ in NS 250 ML IV ONE (12:30)
[2021-05-09 15:02] LABS: ERYTHROCYTE SEDIMENTATION RATE 51 MM/HR (0-15)
[2021-05-10] VITALS (31 sets, daily range): BP systolic 119–157
[2021-05-10] MEDS: D5W 1,000 ML IV SCH ×2 (00:14→21:18)
[2021-05-10] MEDS: INSULIN LISPRO SLIDING SCALE 100 UNITS/ML VIAL (humaLOG) SUBCUT PRN ×4 (00:19→18:47)
[2021-05-10] MEDS: METOCLOPRAMIDE HCL 10 MG/2 ML VIAL IVP SCH ×3 (05:52→21:29)
[2021-05-10] MEDS ORDERED: MEROPENEM 1 GM VIAL IV ONE (06:11)
[2021-05-10 06:30] LABS: BASOPHILS % (AUTO) 0.2 % (0.0-2.0); EOSINOPHILS # (AUTO) 4.4 K/uL (0.0-0.4); EOSINOPHILS % (AUTO) 47.3 % (0.0-4.0); HEMOGLOBIN 9.8 g/dL (14.0-18.0); LYMPHOCYTES # (AUTO) 0.8 K/uL (1.0-5.5); LYMPHOCYTES % (AUTO) 9.2 % (20.5-51.5); MEAN CORPUSCULAR HEMOGLOBIN 32 pg (27-31); MEAN CORPUSCULAR HGB CONC 34 % (32-36); MEAN CORPUSCULAR VOLUME 95 fL (79.0-98.0); MONOCYTES # (AUTO) 0.7 K/uL (0.0-1.0); MONOCYTES % (AUTO) 7.8 % (1.7-9.3); NEUTROPHILS # (AUTO) 3.3 K/uL (1.8-7.7); PLATELET COUNT (AUTO) 131 K/uL (130-430); RED BLOOD CELL COUNT(AUTO) 3.04 MIL/uL (4.2-6.2); WHITE BLOOD COUNT (AUTO) 9.3 K/uL (4.8-10.8)
[2021-05-10] MEDS: MEROPENEM 1 GM in NS 100 ML IV SCH ×3 (06:58→21:32)
[2021-05-10 07:04] LABS: ALBUMIN 0.9 g/dL (3.4-4.8); CALCIUM 7.6 mg/dL (8.4-11.0); CREATININE 1.21 mg/dL (0.55-1.30); PHOSPHORUS 3.4 mg/dL (2.7-4.5); POTASSIUM 3.3 mmol/L (3.5-5.1); TOTAL BILIRUBIN 1.1 mg/dL (0.0-1.0)
[2021-05-10 08:39] LABS: NEUTROPHILS % (AUTO) 35.5 % (40.0-70.0)
[2021-05-10] MEDS: PANTOPRAZOLE SODIUM 40 MG/VIAL (PROTONIX) IVP SCH (08:55)
[2021-05-10] MEDS: LACTULOSE 20 GM/30 ML UDC PO SCH ×3 (08:55→21:30)
[2021-05-10] MEDS: INSULIN NPH 100 UNITS/ML 10 ML VIAL SUBCUT SCH ×2 (08:58→21:21)
[2021-05-10] MEDS: FUROSEMIDE 20 MG/2 ML VIAL IVP SCH ×2 (09:00→21:20)
[2021-05-10] MEDS: BALSAM PERU/CASTOR OIL 60 GM OINT...G. TP SCH (09:00)
[2021-05-10] MEDS ORDERED: KCL 40 mEq in 100 mL (PREMIX) 100 ML IV ONE (10:15)
[2021-05-10 11:53] LABS: ERYTHROCYTE SEDIMENTATION RATE 56 MM/HR (0-15)
[2021-05-10 13:32] LABS: C-REACTIVE PROTEIN QUANT 4.4 mg/dL (0-0.5)
[2021-05-11] VITALS (36 sets, daily range): BP systolic 16–140
[2021-05-11] MEDS: MEROPENEM 1 GM in NS 100 ML IV SCH ×3 (06:00→21:17)
[2021-05-11] MEDS: METOCLOPRAMIDE HCL 10 MG/2 ML VIAL IVP SCH ×3 (06:00→21:18)
[2021-05-11] MEDS: INSULIN LISPRO SLIDING SCALE 100 UNITS/ML VIAL (humaLOG) SUBCUT PRN ×3 (08:00→17:39)
[2021-05-11] MEDS: PANTOPRAZOLE SODIUM 40 MG/VIAL (PROTONIX) IVP SCH (08:38)
[2021-05-11] MEDS: LACTULOSE 20 GM/30 ML UDC PO SCH ×3 (08:39→21:17)
[2021-05-11] MEDS: FUROSEMIDE 20 MG/2 ML VIAL IVP SCH ×2 (08:39→21:15)
[2021-05-11] MEDS: INSULIN NPH 100 UNITS/ML 10 ML VIAL SUBCUT SCH ×2 (08:58→21:14)
[2021-05-11] MEDS: BALSAM PERU/CASTOR OIL 60 GM OINT...G. TP SCH (09:12)
[2021-05-11] MEDS: D5W 1,000 ML IV SCH (17:08)
[2021-05-12] VITALS (26 sets, daily range): BP systolic 103–148
[2021-05-12] MEDS: INSULIN LISPRO SLIDING SCALE 100 UNITS/ML VIAL (humaLOG) SUBCUT PRN ×3 (00:02→11:58)
[2021-05-12] MEDS: MEROPENEM 1 GM in NS 100 ML IV SCH ×3 (06:27→22:49)
[2021-05-12] MEDS: METOCLOPRAMIDE HCL 10 MG/2 ML VIAL IVP SCH ×3 (06:27→22:49)
[2021-05-12] MEDS: FUROSEMIDE 20 MG/2 ML VIAL IVP SCH ×2 (08:12→21:00)
[2021-05-12] MEDS: BALSAM PERU/CASTOR OIL 60 GM OINT...G. TP SCH (08:16)
[2021-05-12] MEDS: LACTULOSE 20 GM/30 ML UDC PO SCH ×3 (08:16→21:00)
[2021-05-12] MEDS: PANTOPRAZOLE SODIUM 40 MG/VIAL (PROTONIX) IVP SCH (08:16)
[2021-05-12] MEDS: INSULIN NPH 100 UNITS/ML 10 ML VIAL SUBCUT SCH ×2 (08:42→21:00)
[2021-05-12] MEDS: D5W 1,000 ML IV SCH (13:45)
[2021-05-13] VITALS (25 sets, daily range): BP systolic 91–125
[2021-05-13] MEDS: MEROPENEM 1 GM in NS 100 ML IV SCH ×3 (06:16→20:56)
[2021-05-13] MEDS: METOCLOPRAMIDE HCL 10 MG/2 ML VIAL IVP SCH ×3 (06:16→20:56)
[2021-05-13] MEDS: D5W 1,000 ML IV SCH ×2 (08:06→13:50)
[2021-05-13] MEDS: LACTULOSE 20 GM/30 ML UDC PO SCH ×3 (09:00→20:55)
[2021-05-13] MEDS: PANTOPRAZOLE SODIUM 40 MG/VIAL (PROTONIX) IVP SCH (09:41)
[2021-05-13] MEDS: FUROSEMIDE 20 MG/2 ML VIAL IVP SCH ×2 (09:41→20:55)
[2021-05-13] MEDS: INSULIN NPH 100 UNITS/ML 10 ML VIAL SUBCUT SCH ×2 (09:43→19:00)
[2021-05-13] MEDS: BALSAM PERU/CASTOR OIL 60 GM OINT...G. TP SCH (09:43)
[2021-05-13] MEDS ORDERED: HEPARIN SODIUM,PORCINE 5,000 UNITS/ML VIAL ONE (16:30)
[2021-05-13] MEDS ORDERED: INSULIN NPH 100 UNITS/ML 10 ML VIAL SUBCUT SCH (21:00)
[2021-05-14] VITALS (20 sets, daily range): BP systolic 92–122
[2021-05-14 06:28] LABS: CALCIUM 7.8 mg/dL (8.4-11.0); CREATININE 0.79 mg/dL (0.55-1.30); POTASSIUM 3.1 mmol/L (3.5-5.1)
[2021-05-14] MEDS: MEROPENEM 1 GM in NS 100 ML IV SCH ×3 (06:34→21:28)
[2021-05-14] MEDS: METOCLOPRAMIDE HCL 10 MG/2 ML VIAL IVP SCH ×3 (06:35→21:29)
[2021-05-14] MEDS: INSULIN NPH 100 UNITS/ML 10 ML VIAL SUBCUT SCH ×2 (08:23→17:57)
[2021-05-14] MEDS: FUROSEMIDE 20 MG/2 ML VIAL IVP SCH ×2 (09:06→21:30)
[2021-05-14] MEDS: LACTULOSE 20 GM/30 ML UDC PO SCH ×3 (09:06→21:00)
[2021-05-14] MEDS: PANTOPRAZOLE SODIUM 40 MG/VIAL (PROTONIX) IVP SCH (09:06)
[2021-05-14] MEDS: BALSAM PERU/CASTOR OIL 60 GM OINT...G. TP SCH (09:08)
[2021-05-14] MEDS: D5W 1,000 ML IV SCH (12:41)
[2021-05-14] MEDS: ALBUTEROL SULFATE 0.083% 2.5 MG/3 ML VIAL.NEB INH PRN (12:55)
[2021-05-14] MEDS: INSULIN LISPRO SLIDING SCALE 100 UNITS/ML VIAL (humaLOG) SUBCUT PRN (18:03)
[2021-05-15 00:50] VITALS: BP_SYST 101
[2021-05-15] MEDS: MEROPENEM 1 GM in NS 100 ML IV SCH ×3 (05:36→20:53)
[2021-05-15] MEDS: METOCLOPRAMIDE HCL 10 MG/2 ML VIAL IVP SCH ×3 (05:37→20:54)
[2021-05-15 08:14] LABS: CALCIUM 7.8 mg/dL (8.4-11.0); CREATININE 0.86 mg/dL (0.55-1.30)
[2021-05-15 08:29] LABS: POTASSIUM 2.8 mmol/L (3.5-5.1)
[2021-05-15] MEDS: FUROSEMIDE 20 MG/2 ML VIAL IVP SCH ×2 (09:12→20:55)
[2021-05-15] MEDS: LACTULOSE 20 GM/30 ML UDC PO SCH ×3 (09:12→20:55)
[2021-05-15] MEDS: PANTOPRAZOLE SODIUM 40 MG/VIAL (PROTONIX) IVP SCH (09:13)
[2021-05-15] MEDS: BALSAM PERU/CASTOR OIL 60 GM OINT...G. TP SCH (09:13)
[2021-05-15] MEDS: INSULIN NPH 100 UNITS/ML 10 ML VIAL SUBCUT SCH ×2 (09:15→16:43)
[2021-05-15] MEDS ORDERED: POTASSIUM CHLORIDE 40 MEQ in NS 250 ML IV ONE (11:00)
[2021-05-15 11:46] VITALS: BP_SYST 100
[2021-05-15 15:29] VITALS: BP_SYST 107
[2021-05-15 20:00] VITALS: BP_SYST 113
[2021-05-15] MEDS: D5W 1,000 ML IV SCH (20:56)
[2021-05-15] MEDS: DEXTROSE 50% JECT 50 ML DISP.SYRIN IVP PRN (23:28)
[2021-05-16] VITALS: BP_SYST 106
[2021-05-16] MEDS: METOCLOPRAMIDE HCL 10 MG/2 ML VIAL IVP SCH ×3 (05:57→21:13)
[2021-05-16 07:02] LABS: BASOPHILS % (AUTO) 0.3 % (0.0-2.0); EOSINOPHILS # (AUTO) 2.5 K/uL (0.0-0.4); EOSINOPHILS % (AUTO) 14.9 % (0.0-4.0); HEMOGLOBIN 8.7 g/dL (14.0-18.0); LYMPHOCYTES # (AUTO) 1.5 K/uL (1.0-5.5); LYMPHOCYTES % (AUTO) 9.2 % (20.5-51.5); MEAN CORPUSCULAR HEMOGLOBIN 32 pg (27-31); MEAN CORPUSCULAR HGB CONC 33 % (32-36); MEAN CORPUSCULAR VOLUME 95 fL (79.0-98.0); MONOCYTES # (AUTO) 1.4 K/uL (0.0-1.0); MONOCYTES % (AUTO) 8.7 % (1.7-9.3); NEUTROPHILS # (AUTO) 11.2 K/uL (1.8-7.7); NEUTROPHILS % (AUTO) 66.9 % (40.0-70.0); PLATELET COUNT (AUTO) 86 K/uL (130-430); RED BLOOD CELL COUNT(AUTO) 2.75 MIL/uL (4.2-6.2); RED CELL DISTRIBUTION WIDTH 19.1 % (9.0-15.0); WHITE BLOOD COUNT (AUTO) 16.7 K/uL (4.8-10.8)
[2021-05-16 07:54] LABS: C-REACTIVE PROTEIN QUANT 3.9 mg/dL (0-0.5); CALCIUM 7.1 mg/dL (8.4-11.0); CREATININE 0.86 mg/dL (0.55-1.30); PHOSPHORUS 3.1 mg/dL (2.7-4.5); POTASSIUM 3.1 mmol/L (3.5-5.1)
[2021-05-16 08:00] VITALS: BP_SYST 117
[2021-05-16] MEDS: INSULIN NPH 100 UNITS/ML 10 ML VIAL SUBCUT SCH ×2 (08:30→17:02)
[2021-05-16] MEDS: FUROSEMIDE 20 MG/2 ML VIAL IVP SCH ×2 (08:35→21:00)
[2021-05-16] MEDS: LACTULOSE 20 GM/30 ML UDC PO SCH ×4 (08:35→21:07)
[2021-05-16] MEDS: PANTOPRAZOLE SODIUM 40 MG/VIAL (PROTONIX) IVP SCH (08:35)
[2021-05-16] MEDS: BALSAM PERU/CASTOR OIL 60 GM OINT...G. TP SCH (08:36)
[2021-05-16 11:20] LABS: INR 1.6 (0.80-1.20); PROTHROMBIN TIME 16.5 SECS (9.5-12.5)
[2021-05-16 11:25] VITALS: BP_SYST 105
[2021-05-16 11:26] VITALS: BP_SYST 105
[2021-05-16] MEDS: ALBUTEROL SULFATE 0.083% 2.5 MG/3 ML VIAL.NEB INH PRN (11:31)
[2021-05-16 12:59] LABS: ERYTHROCYTE SEDIMENTATION RATE 49 MM/HR (0-15)
[2021-05-16 15:31] VITALS: BP_SYST 136
[2021-05-16] MEDS: D5W 1,000 ML IV SCH (16:59)
[2021-05-16 20:00] VITALS: BP_SYST 96
[2021-05-16] MEDS ORDERED: POTASSIUM CHLORIDE 20 MEQ TAB.PRT.SR PO ONE (20:00)
[2021-05-16] MEDS ORDERED: NACL 0.9% 1,000 ML IV ONE (23:15)
[2021-05-17] MEDS: INSULIN LISPRO SLIDING SCALE 100 UNITS/ML VIAL (humaLOG) SUBCUT PRN (00:31)
[2021-05-17 01:17] VITALS: BP_SYST 92
[2021-05-17] MEDS: ALBUTEROL SULFATE 0.083% 2.5 MG/3 ML VIAL.NEB INH PRN ×2 (05:33→07:54)
[2021-05-17 05:51] VITALS: BP_SYST 145
[2021-05-17] MEDS: METOCLOPRAMIDE HCL 10 MG/2 ML VIAL IVP SCH ×3 (06:00→21:26)
[2021-05-17 07:06] LABS: BASOPHILS % (AUTO) 0.3 % (0.0-2.0); EOSINOPHILS # (AUTO) 2.3 K/uL (0.0-0.4); EOSINOPHILS % (AUTO) 20.2 % (0.0-4.0); HEMATOCRIT 27.7 % (36-54); HEMOGLOBIN 9.2 g/dL (14.0-18.0); LYMPHOCYTES # (AUTO) 1.3 K/uL (1.0-5.5); MEAN CORPUSCULAR HEMOGLOBIN 31 pg (27-31); MEAN CORPUSCULAR HGB CONC 33 % (32-36); MEAN CORPUSCULAR VOLUME 94 fL (79.0-98.0); MONOCYTES # (AUTO) 0.9 K/uL (0.0-1.0); MONOCYTES % (AUTO) 8.1 % (1.7-9.3); NEUTROPHILS # (AUTO) 6.7 K/uL (1.8-7.7); NEUTROPHILS % (AUTO) 59.4 % (40.0-70.0); PLATELET COUNT (AUTO) 99 K/uL (130-430); RED BLOOD CELL COUNT(AUTO) 2.95 MIL/uL (4.2-6.2); RED CELL DISTRIBUTION WIDTH 19.4 % (9.0-15.0); WHITE BLOOD COUNT (AUTO) 11.2 K/uL (4.8-10.8)
[2021-05-17 07:27] LABS: ALBUMIN 0.9 g/dL (3.4-4.8); CALCIUM 7.7 mg/dL (8.4-11.0); CREATININE 0.81 mg/dL (0.55-1.30); TOTAL BILIRUBIN 1.4 mg/dL (0.0-1.0)
[2021-05-17] MEDS: INSULIN NPH 100 UNITS/ML 10 ML VIAL SUBCUT SCH ×2 (08:30→17:56)
[2021-05-17] MEDS: FUROSEMIDE 20 MG/2 ML VIAL IVP SCH ×3 (08:50→21:28)
[2021-05-17] MEDS: PANTOPRAZOLE SODIUM 40 MG/VIAL (PROTONIX) IVP SCH ×2 (08:51→09:00)
[2021-05-17] MEDS: LACTULOSE 20 GM/30 ML UDC PO SCH ×4 (08:56→21:26)
[2021-05-17] MEDS: BALSAM PERU/CASTOR OIL 60 GM OINT...G. TP SCH (08:57)
[2021-05-17 09:47] LABS: POTASSIUM 2.9 mmol/L (3.5-5.1)
[2021-05-17] MEDS ORDERED: POTASSIUM CHLORIDE 40 MEQ in 0.45% NS 250 ML IV ONE (10:00)
[2021-05-17 11:27] VITALS: BP_SYST 90
[2021-05-17 11:27] LABS: INR 1.7 (0.80-1.20)
[2021-05-17] MEDS: IPRATROPIUM/ALBUTEROL SULFATE 3 ML AMPUL.NEB (DUONEB) INH SCH ×4 (11:46→23:51)
[2021-05-17] MEDS: ACETYLCYSTEINE 20% 4 ML VIAL (RT) INH SCH ×3 (11:46→19:35)
[2021-05-17] MEDS: D5W 1,000 ML IV SCH ×2 (12:06→17:46)
[2021-05-17 15:34] VITALS: BP_SYST 100
[2021-05-17 20:00] VITALS: BP_SYST 123
[2021-05-18 00:58] VITALS: BP_SYST 133
[2021-05-18] MEDS: IPRATROPIUM/ALBUTEROL SULFATE 3 ML AMPUL.NEB (DUONEB) INH SCH ×6 (03:17→23:12)
[2021-05-18] MEDS: METOCLOPRAMIDE HCL 10 MG/2 ML VIAL IVP SCH ×3 (05:44→21:41)
[2021-05-18] MEDS: INSULIN LISPRO SLIDING SCALE 100 UNITS/ML VIAL (humaLOG) SUBCUT PRN (05:52)
[2021-05-18] MEDS: ACETYLCYSTEINE 20% 4 ML VIAL (RT) INH SCH ×4 (07:17→19:32)
[2021-05-18 08:00] VITALS: BP_SYST 131
[2021-05-18] MEDS: PANTOPRAZOLE SODIUM 40 MG/VIAL (PROTONIX) IVP SCH (09:08)
[2021-05-18] MEDS: LACTULOSE 20 GM/30 ML UDC PO SCH ×3 (09:08→21:00)
[2021-05-18] MEDS: FUROSEMIDE 20 MG/2 ML VIAL IVP SCH ×2 (09:09→21:04)
[2021-05-18] MEDS: BALSAM PERU/CASTOR OIL 60 GM OINT...G. TP SCH (09:13)
[2021-05-18] MEDS: INSULIN NPH 100 UNITS/ML 10 ML VIAL SUBCUT SCH ×2 (09:13→18:09)
[2021-05-18 11:27] VITALS: BP_SYST 125
[2021-05-18 15:24] VITALS: BP_SYST 115
[2021-05-18 20:28] VITALS: BP_SYST 135
[2021-05-19 01:03] VITALS: BP_SYST 107
[2021-05-19] MEDS: D5W 1,000 ML IV SCH ×2 (03:20→16:46)
[2021-05-19] MEDS: IPRATROPIUM/ALBUTEROL SULFATE 3 ML AMPUL.NEB (DUONEB) INH SCH ×6 (03:32→23:38)
[2021-05-19] MEDS: METOCLOPRAMIDE HCL 10 MG/2 ML VIAL IVP SCH ×3 (06:12→21:48)
[2021-05-19 08:00] VITALS: BP_SYST 99
[2021-05-19] MEDS: FUROSEMIDE 20 MG/2 ML VIAL IVP SCH ×2 (08:37→21:49)
[2021-05-19] MEDS: LACTULOSE 20 GM/30 ML UDC PO SCH ×3 (08:38→21:49)
[2021-05-19] MEDS: PANTOPRAZOLE SODIUM 40 MG/VIAL (PROTONIX) IVP SCH (08:42)
[2021-05-19] MEDS: BALSAM PERU/CASTOR OIL 60 GM OINT...G. TP SCH (08:42)
[2021-05-19] MEDS: INSULIN NPH 100 UNITS/ML 10 ML VIAL SUBCUT SCH ×2 (08:49→18:00)
[2021-05-19 11:13] LABS: INR 1.6 (0.80-1.20); PROTHROMBIN TIME 16.2 SECS (9.5-12.5)
[2021-05-19 11:24] VITALS: BP_SYST 137
[2021-05-19] MEDS: ACETYLCYSTEINE 20% 4 ML VIAL (RT) INH SCH ×3 (11:59→19:11)
[2021-05-19 16:17] VITALS: BP_SYST 106
[2021-05-20 00:51] VITALS: BP_SYST 110
[2021-05-20 04:00] VITALS: BP_SYST 105
[2021-05-20] MEDS: IPRATROPIUM/ALBUTEROL SULFATE 3 ML AMPUL.NEB (DUONEB) INH SCH ×5 (04:37→19:31)
[2021-05-20] MEDS: ACETYLCYSTEINE 20% 4 ML VIAL (RT) INH SCH ×4 (07:30→19:32)
[2021-05-20] MEDS: METOCLOPRAMIDE HCL 10 MG/2 ML VIAL IVP SCH ×3 (07:31→21:17)
[2021-05-20 08:00] VITALS: BP_SYST 106
[2021-05-20] MEDS: INSULIN NPH 100 UNITS/ML 10 ML VIAL SUBCUT SCH ×2 (08:24→15:57)
[2021-05-20] MEDS: PANTOPRAZOLE SODIUM 40 MG/VIAL (PROTONIX) IVP SCH (08:24)
[2021-05-20] MEDS: FUROSEMIDE 20 MG/2 ML VIAL IVP SCH ×2 (08:24→21:17)
[2021-05-20] MEDS: LACTULOSE 20 GM/30 ML UDC PO SCH ×3 (08:24→21:16)
[2021-05-20] MEDS: BALSAM PERU/CASTOR OIL 60 GM OINT...G. TP SCH (08:25)
[2021-05-20 11:35] VITALS: BP_SYST 102
[2021-05-20 15:34] VITALS: BP_SYST 109
[2021-05-20] MEDS: INSULIN LISPRO SLIDING SCALE 100 UNITS/ML VIAL (humaLOG) SUBCUT PRN (16:03)
[2021-05-20 20:00] VITALS: BP_SYST 107
[2021-05-20] MEDS: D5W 1,000 ML IV SCH (20:06)
[2021-05-21] MEDS: IPRATROPIUM/ALBUTEROL SULFATE 3 ML AMPUL.NEB (DUONEB) INH SCH ×4 (01:03→11:40)
[2021-05-21 01:52] VITALS: BP_SYST 121
[2021-05-21] MEDS: INSULIN LISPRO SLIDING SCALE 100 UNITS/ML VIAL (humaLOG) SUBCUT PRN ×3 (05:13→17:10)
[2021-05-21] MEDS: METOCLOPRAMIDE HCL 10 MG/2 ML VIAL IVP SCH ×3 (05:14→22:08)
[2021-05-21] MEDS: ACETYLCYSTEINE 20% 4 ML VIAL (RT) INH SCH ×2 (07:17→11:41)
[2021-05-21 08:00] VITALS: BP_SYST 108
[2021-05-21 08:17] LABS: BASOPHILS # (AUTO) 0.1 K/uL (0.0-0.2); BASOPHILS % (AUTO) 0.6 % (0.0-2.0); EOSINOPHILS # (AUTO) 1.7 K/uL (0.0-0.4); EOSINOPHILS % (AUTO) 16.9 % (0.0-4.0); HEMATOCRIT 26.8 % (36-54); LYMPHOCYTES # (AUTO) 1.2 K/uL (1.0-5.5); LYMPHOCYTES % (AUTO) 11.9 % (20.5-51.5); MEAN CORPUSCULAR HEMOGLOBIN 31 pg (27-31); MEAN CORPUSCULAR HGB CONC 33 % (32-36); MEAN CORPUSCULAR VOLUME 93 fL (79.0-98.0); MONOCYTES % (AUTO) 9.5 % (1.7-9.3); NEUTROPHILS # (AUTO) 6.2 K/uL (1.8-7.7); NEUTROPHILS % (AUTO) 61.1 % (40.0-70.0); PLATELET COUNT (AUTO) 95 K/uL (130-430); RED BLOOD CELL COUNT(AUTO) 2.88 MIL/uL (4.2-6.2); RED CELL DISTRIBUTION WIDTH 18.8 % (9.0-15.0); WHITE BLOOD COUNT (AUTO) 10.2 K/uL (4.8-10.8)
[2021-05-21 08:32] LABS: CALCIUM 7.7 mg/dL (8.4-11.0); CREATININE 0.89 mg/dL (0.55-1.30)
[2021-05-21 09:17] LABS: POTASSIUM 2.8 mmol/L (3.5-5.1)
[2021-05-21] MEDS: PANTOPRAZOLE SODIUM 40 MG/VIAL (PROTONIX) IVP SCH (09:20)
[2021-05-21] MEDS: LACTULOSE 20 GM/30 ML UDC PO SCH ×3 (09:20→22:07)
[2021-05-21] MEDS: INSULIN NPH 100 UNITS/ML 10 ML VIAL SUBCUT SCH ×2 (09:20→17:07)
[2021-05-21] MEDS: FUROSEMIDE 20 MG/2 ML VIAL IVP SCH ×2 (09:21→22:10)
[2021-05-21] MEDS: BALSAM PERU/CASTOR OIL 60 GM OINT...G. TP SCH (09:22)
[2021-05-21] MEDS ORDERED: POTASSIUM CHLORIDE 40 MEQ in D5W 250 ML IV ONE (10:30)
[2021-05-21 11:28] VITALS: BP_SYST 128
[2021-05-21 15:42] VITALS: BP_SYST 119
[2021-05-21] MEDS: D5W 1,000 ML IV SCH (17:11)
[2021-05-21 20:00] VITALS: BP_SYST 113
[2021-05-22] VITALS: BP_SYST 122
[2021-05-22] MEDS: INSULIN LISPRO SLIDING SCALE 100 UNITS/ML VIAL (humaLOG) SUBCUT PRN ×4 (00:55→17:11)
[2021-05-22] MEDS: ACETYLCYSTEINE 20% 4 ML VIAL (RT) INH SCH ×4 (03:05→19:43)
[2021-05-22] MEDS: IPRATROPIUM/ALBUTEROL SULFATE 3 ML AMPUL.NEB (DUONEB) INH SCH ×6 (03:05→19:43)
[2021-05-22] MEDS: METOCLOPRAMIDE HCL 10 MG/2 ML VIAL IVP SCH ×3 (05:22→20:57)
[2021-05-22 09:58] VITALS: BP_SYST 109
[2021-05-22] MEDS: LACTULOSE 20 GM/30 ML UDC PO SCH ×3 (10:01→20:56)
[2021-05-22] MEDS: PANTOPRAZOLE SODIUM 40 MG/VIAL (PROTONIX) IVP SCH (10:01)
[2021-05-22] MEDS: FUROSEMIDE 20 MG/2 ML VIAL IVP SCH ×2 (10:02→20:57)
[2021-05-22] MEDS: BALSAM PERU/CASTOR OIL 60 GM OINT...G. TP SCH (10:02)
[2021-05-22] MEDS: INSULIN NPH 100 UNITS/ML 10 ML VIAL SUBCUT SCH ×2 (10:10→17:06)
[2021-05-22 12:50] VITALS: BP_SYST 115
[2021-05-22] MEDS: D5W 1,000 ML IV SCH (14:22)
[2021-05-22] MEDS ORDERED: INSULIN NPH 100 UNITS/ML 10 ML VIAL SUBCUT ONE (18:00)
[2021-05-22] MEDS ORDERED: INSULIN NPH 100 UNITS/ML 10 ML VIAL SUBCUT SCH (18:00)
[2021-05-22 18:03] VITALS: BP_SYST 109
[2021-05-22 20:00] VITALS: BP_SYST 132
[2021-05-23] MEDS: INSULIN LISPRO SLIDING SCALE 100 UNITS/ML VIAL (humaLOG) SUBCUT PRN ×3 (00:57→12:33)
[2021-05-23 01:09] VITALS: BP_SYST 111
[2021-05-23] MEDS: IPRATROPIUM/ALBUTEROL SULFATE 3 ML AMPUL.NEB (DUONEB) INH SCH ×6 (02:39→23:19)
[2021-05-23] MEDS: METOCLOPRAMIDE HCL 10 MG/2 ML VIAL IVP SCH ×3 (05:32→22:09)
[2021-05-23] MEDS: D5W 1,000 ML IV SCH (06:58)
[2021-05-23] MEDS: ACETYLCYSTEINE 20% 4 ML VIAL (RT) INH SCH ×4 (07:41→20:35)
[2021-05-23 08:20] LABS: BASOPHILS % (AUTO) 0.4 % (0.0-2.0); EOSINOPHILS # (AUTO) 1.1 K/uL (0.0-0.4); EOSINOPHILS % (AUTO) 17.2 % (0.0-4.0); HEMATOCRIT 22.3 % (36-54); HEMOGLOBIN 7.5 g/dL (14.0-18.0); LYMPHOCYTES # (AUTO) 1.1 K/uL (1.0-5.5); LYMPHOCYTES % (AUTO) 16.1 % (20.5-51.5); MEAN CORPUSCULAR HEMOGLOBIN 31 pg (27-31); MEAN CORPUSCULAR HGB CONC 34 % (32-36); MEAN CORPUSCULAR VOLUME 92 fL (79.0-98.0); MONOCYTES # (AUTO) 0.7 K/uL (0.0-1.0); MONOCYTES % (AUTO) 11.1 % (1.7-9.3); NEUTROPHILS # (AUTO) 3.7 K/uL (1.8-7.7); NEUTROPHILS % (AUTO) 55.2 % (40.0-70.0); PLATELET COUNT (AUTO) 57 K/uL (130-430); RED BLOOD CELL COUNT(AUTO) 2.43 MIL/uL (4.2-6.2); RED CELL DISTRIBUTION WIDTH 18.6 % (9.0-15.0); WHITE BLOOD COUNT (AUTO) 6.6 K/uL (4.8-10.8)
[2021-05-23] MEDS: INSULIN NPH 100 UNITS/ML 10 ML VIAL SUBCUT SCH ×2 (08:21→18:08)
[2021-05-23 08:40] VITALS: BP_SYST 101
[2021-05-23 08:45] LABS: CALCIUM 7.3 mg/dL (8.4-11.0); CREATININE 0.94 mg/dL (0.55-1.30)
[2021-05-23] MEDS: LACTULOSE 20 GM/30 ML UDC PO SCH ×3 (09:37→22:08)
[2021-05-23] MEDS: BALSAM PERU/CASTOR OIL 60 GM OINT...G. TP SCH (09:37)
[2021-05-23] MEDS: FUROSEMIDE 20 MG/2 ML VIAL IVP SCH ×2 (09:40→22:08)
[2021-05-23] MEDS: PANTOPRAZOLE SODIUM 40 MG/VIAL (PROTONIX) IVP SCH (09:40)
[2021-05-23 12:15] VITALS: BP_SYST 107
[2021-05-23 13:41] LABS: INR 1.4 (0.80-1.20); PROTHROMBIN TIME 14.7 SECS (9.5-12.5)
[2021-05-23 16:05] VITALS: BP_SYST 99
[2021-05-23 19:00] VITALS: BP_SYST 112
[2021-05-23 20:00] VITALS: BP_SYST 112
[2021-05-24] MEDS: INSULIN LISPRO SLIDING SCALE 100 UNITS/ML VIAL (humaLOG) SUBCUT PRN ×5 (00:13→23:25)
[2021-05-24 00:24] VITALS: BP_SYST 113
[2021-05-24] MEDS: IPRATROPIUM/ALBUTEROL SULFATE 3 ML AMPUL.NEB (DUONEB) INH SCH ×6 (03:29→23:22)
[2021-05-24] MEDS: D5W 1,000 ML IV SCH ×2 (04:34→23:47)
[2021-05-24] MEDS: METOCLOPRAMIDE HCL 10 MG/2 ML VIAL IVP SCH ×3 (05:10→21:08)
[2021-05-24] MEDS: ACETYLCYSTEINE 20% 4 ML VIAL (RT) INH SCH ×4 (07:47→19:53)
[2021-05-24 08:29] VITALS: BP_SYST 116
[2021-05-24] MEDS: FUROSEMIDE 20 MG/2 ML VIAL IVP SCH ×2 (08:31→21:08)
[2021-05-24] MEDS: LACTULOSE 20 GM/30 ML UDC PO SCH ×3 (08:31→21:05)
[2021-05-24] MEDS: PANTOPRAZOLE SODIUM 40 MG/VIAL (PROTONIX) IVP SCH (08:31)
[2021-05-24] MEDS: BALSAM PERU/CASTOR OIL 60 GM OINT...G. TP SCH (08:32)
[2021-05-24] MEDS: INSULIN NPH 100 UNITS/ML 10 ML VIAL SUBCUT SCH ×2 (08:35→18:04)
[2021-05-24 08:47] LABS: BASOPHILS % (AUTO) 0.3 % (0.0-2.0); EOSINOPHILS # (AUTO) 1.6 K/uL (0.0-0.4); EOSINOPHILS % (AUTO) 18.4 % (0.0-4.0); HEMATOCRIT 22.4 % (36-54); HEMOGLOBIN 7.5 g/dL (14.0-18.0); LYMPHOCYTES # (AUTO) 1.2 K/uL (1.0-5.5); LYMPHOCYTES % (AUTO) 13.4 % (20.5-51.5); MEAN CORPUSCULAR HEMOGLOBIN 31 pg (27-31); MEAN CORPUSCULAR HGB CONC 33 % (32-36); MEAN CORPUSCULAR VOLUME 92 fL (79.0-98.0); MONOCYTES # (AUTO) 0.9 K/uL (0.0-1.0); MONOCYTES % (AUTO) 10.8 % (1.7-9.3); NEUTROPHILS # (AUTO) 4.9 K/uL (1.8-7.7); PLATELET COUNT (AUTO) 69 K/uL (130-430); RED BLOOD CELL COUNT(AUTO) 2.44 MIL/uL (4.2-6.2); RED CELL DISTRIBUTION WIDTH 18.8 % (9.0-15.0); WHITE BLOOD COUNT (AUTO) 8.7 K/uL (4.8-10.8)
[2021-05-24 09:27] LABS: CALCIUM 7.8 mg/dL (8.4-11.0); CREATININE 0.82 mg/dL (0.55-1.30); TOTAL BILIRUBIN 0.8 mg/dL (0.0-1.0)
[2021-05-24] MEDS ORDERED: INSULIN NPH 100 UNITS/ML 10 ML VIAL SUBCUT ONE (10:30)
[2021-05-24 11:30] VITALS: BP_SYST 105
[2021-05-24 11:50] LABS: POTASSIUM 2.8 mmol/L (3.5-5.1)
[2021-05-24] MEDS ORDERED: POTASSIUM CHLORIDE 60 MEQ in D5W 500 ML IV ONE (12:15)
[2021-05-24 13:41] LABS: NEUTROPHILS % (AUTO) 57.1 % (40.0-70.0)
[2021-05-24 15:39] VITALS: BP_SYST 119
[2021-05-24 20:00] VITALS: BP_SYST 108
[2021-05-25 00:12] VITALS: BP_SYST 114
[2021-05-25] MEDS: IPRATROPIUM/ALBUTEROL SULFATE 3 ML AMPUL.NEB (DUONEB) INH SCH ×6 (02:47→23:57)
[2021-05-25] MEDS: METOCLOPRAMIDE HCL 10 MG/2 ML VIAL IVP SCH ×3 (06:15→21:02)
[2021-05-25] MEDS: INSULIN LISPRO SLIDING SCALE 100 UNITS/ML VIAL (humaLOG) SUBCUT PRN ×4 (06:24→23:49)
[2021-05-25] MEDS: ACETYLCYSTEINE 20% 4 ML VIAL (RT) INH SCH ×4 (07:53→20:52)
[2021-05-25 08:00] VITALS: BP_SYST 126
[2021-05-25] MEDS: FUROSEMIDE 20 MG/2 ML VIAL IVP SCH ×2 (09:07→21:03)
[2021-05-25] MEDS: LACTULOSE 20 GM/30 ML UDC PO SCH ×3 (09:07→21:02)
[2021-05-25] MEDS: PANTOPRAZOLE SODIUM 40 MG/VIAL (PROTONIX) IVP SCH (09:07)
[2021-05-25] MEDS: INSULIN NPH 100 UNITS/ML 10 ML VIAL SUBCUT SCH ×2 (09:11→18:16)
[2021-05-25] MEDS: BALSAM PERU/CASTOR OIL 60 GM OINT...G. TP SCH (09:12)
[2021-05-25 10:55] VITALS: BP_SYST 126
[2021-05-25 11:40] VITALS: BP_SYST 126
[2021-05-25 15:29] VITALS: BP_SYST 121
[2021-05-25 20:00] VITALS: BP_SYST 104
[2021-05-26 01:22] VITALS: BP_SYST 109
[2021-05-26] MEDS: IPRATROPIUM/ALBUTEROL SULFATE 3 ML AMPUL.NEB (DUONEB) INH SCH ×5 (03:18→23:42)
[2021-05-26] MEDS: INSULIN LISPRO SLIDING SCALE 100 UNITS/ML VIAL (humaLOG) SUBCUT PRN ×2 (05:58→12:52)
[2021-05-26] MEDS: METOCLOPRAMIDE HCL 10 MG/2 ML VIAL IVP SCH (06:03)
[2021-05-26] MEDS: ACETYLCYSTEINE 20% 4 ML VIAL (RT) INH SCH ×3 (07:40→20:25)
[2021-05-26 08:00] VITALS: BP_SYST 113
[2021-05-26] MEDS: LACTULOSE 20 GM/30 ML UDC PO SCH ×3 (08:18→21:03)
[2021-05-26] MEDS: PANTOPRAZOLE SODIUM 40 MG/VIAL (PROTONIX) IVP SCH (08:19)
[2021-05-26] MEDS: FUROSEMIDE 20 MG/2 ML VIAL IVP SCH ×2 (08:21→21:03)
[2021-05-26] MEDS: INSULIN NPH 100 UNITS/ML 10 ML VIAL SUBCUT SCH ×2 (08:23→17:55)
[2021-05-26] MEDS: BALSAM PERU/CASTOR OIL 60 GM OINT...G. TP SCH (08:24)
[2021-05-26 10:33] LABS: BASOPHILS # (AUTO) 0.1 K/uL (0.0-0.2); BASOPHILS % (AUTO) 1.1 % (0.0-2.0); EOSINOPHILS # (AUTO) 1.3 K/uL (0.0-0.4); EOSINOPHILS % (AUTO) 11.5 % (0.0-4.0); HEMOGLOBIN 7.4 g/dL (14.0-18.0); LYMPHOCYTES # (AUTO) 0.9 K/uL (1.0-5.5); LYMPHOCYTES % (AUTO) 8.2 % (20.5-51.5); MEAN CORPUSCULAR HEMOGLOBIN 31 pg (27-31); MEAN CORPUSCULAR HGB CONC 34 % (32-36); MEAN CORPUSCULAR VOLUME 92 fL (79.0-98.0); MONOCYTES # (AUTO) 0.9 K/uL (0.0-1.0); MONOCYTES % (AUTO) 8.7 % (1.7-9.3); NEUTROPHILS # (AUTO) 7.7 K/uL (1.8-7.7); NEUTROPHILS % (AUTO) 70.5 % (40.0-70.0); PLATELET COUNT (AUTO) 70 K/uL (130-430); RED BLOOD CELL COUNT(AUTO) 2.38 MIL/uL (4.2-6.2); RED CELL DISTRIBUTION WIDTH 18.9 % (9.0-15.0); WHITE BLOOD COUNT (AUTO) 10.9 K/uL (4.8-10.8)
[2021-05-26 10:40] LABS: CALCIUM 8.1 mg/dL (8.4-11.0); CREATININE 0.9 mg/dL (0.55-1.30); POTASSIUM 3.6 mmol/L (3.5-5.1)
[2021-05-26 10:52] LABS: TOTAL BILIRUBIN 0.9 mg/dL (0.0-1.0)
[2021-05-26 11:28] VITALS: BP_SYST 118
[2021-05-26 15:37] VITALS: BP_SYST 111
[2021-05-26 20:00] VITALS: BP_SYST 126
[2021-05-26] MEDS: D5NS 1,000 ML IV SCH (23:27)
[2021-05-27 00:27] VITALS: BP_SYST 152
[2021-05-27] MEDS: INSULIN LISPRO SLIDING SCALE 100 UNITS/ML VIAL (humaLOG) SUBCUT PRN (00:45)
[2021-05-27] MEDS: IPRATROPIUM/ALBUTEROL SULFATE 3 ML AMPUL.NEB (DUONEB) INH SCH ×6 (04:13→22:55)
[2021-05-27 07:38] LABS: INR 1.2 (0.80-1.20); PROTHROMBIN TIME 12.3 SECS (9.5-12.5)
[2021-05-27] MEDS: ACETYLCYSTEINE 20% 4 ML VIAL (RT) INH SCH ×4 (07:58→20:03)
[2021-05-27 08:10] LABS: CALCIUM 8.2 mg/dL (8.4-11.0); CREATININE 0.91 mg/dL (0.55-1.30); POTASSIUM 3.4 mmol/L (3.5-5.1)
[2021-05-27] MEDS ORDERED: CEFAZOLIN 1 GM IVPB PREMIX 50 ML IV ONE (08:15)
[2021-05-27] MEDS: MIDAZOLAM HCL 5 MG/5 ML VIAL ONE ×2 (08:47→08:49)
[2021-05-27] MEDS: MEPERIDINE 100 MG INJ. 100 MG/ML VIAL ONE ×2 (08:47→08:49)
[2021-05-27 10:13] LABS: BASOPHILS # (AUTO) 0.1 K/uL (0.0-0.2); BASOPHILS % (AUTO) 0.5 % (0.0-2.0); EOSINOPHILS # (AUTO) 1.2 K/uL (0.0-0.4); EOSINOPHILS % (AUTO) 11.5 % (0.0-4.0); HEMATOCRIT 22.2 % (36-54); HEMOGLOBIN 7.5 g/dL (14.0-18.0); LYMPHOCYTES % (AUTO) 9.7 % (20.5-51.5); MEAN CORPUSCULAR HEMOGLOBIN 31 pg (27-31); MEAN CORPUSCULAR HGB CONC 34 % (32-36); MEAN CORPUSCULAR VOLUME 93 fL (79.0-98.0); MONOCYTES # (AUTO) 0.9 K/uL (0.0-1.0); MONOCYTES % (AUTO) 9.1 % (1.7-9.3); NEUTROPHILS % (AUTO) 69.2 % (40.0-70.0); PLATELET COUNT (AUTO) 72 K/uL (130-430); RED BLOOD CELL COUNT(AUTO) 2.38 MIL/uL (4.2-6.2); RED CELL DISTRIBUTION WIDTH 20.3 % (9.0-15.0); WHITE BLOOD COUNT (AUTO) 10.1 K/uL (4.8-10.8)
[2021-05-27] MEDS: PANTOPRAZOLE SODIUM 40 MG/VIAL (PROTONIX) IVP SCH (10:31)
[2021-05-27] MEDS: LACTULOSE 20 GM/30 ML UDC PO SCH ×3 (10:31→21:16)
[2021-05-27] MEDS: FUROSEMIDE 20 MG/2 ML VIAL IVP SCH ×2 (10:32→21:17)
[2021-05-27] MEDS: INSULIN NPH 100 UNITS/ML 10 ML VIAL SUBCUT SCH ×2 (10:36→18:18)
[2021-05-27] MEDS: BALSAM PERU/CASTOR OIL 60 GM OINT...G. TP SCH (10:48)
[2021-05-27 12:18] VITALS: BP_SYST 129
[2021-05-27 16:32] VITALS: BP_SYST 121
[2021-05-27 20:00] VITALS: BP_SYST 141
[2021-05-27] MEDS: D5NS 1,000 ML IV SCH (20:59)
[2021-05-28 00:50] VITALS: BP_SYST 129
[2021-05-28] MEDS: IPRATROPIUM/ALBUTEROL SULFATE 3 ML AMPUL.NEB (DUONEB) INH SCH ×5 (04:35→22:51)
[2021-05-28] MEDS: INSULIN LISPRO SLIDING SCALE 100 UNITS/ML VIAL (humaLOG) SUBCUT PRN (07:07)
[2021-05-28 07:44] LABS: BASOPHILS % (AUTO) 0.1 % (0.0-2.0); EOSINOPHILS # (AUTO) 0.3 K/uL (0.0-0.4); EOSINOPHILS % (AUTO) 2.2 % (0.0-4.0); HEMATOCRIT 22.1 % (36-54); HEMOGLOBIN 7.3 g/dL (14.0-18.0); LYMPHOCYTES # (AUTO) 0.9 K/uL (1.0-5.5); LYMPHOCYTES % (AUTO) 6.6 % (20.5-51.5); MEAN CORPUSCULAR HEMOGLOBIN 31 pg (27-31); MEAN CORPUSCULAR HGB CONC 33 % (32-36); MEAN CORPUSCULAR VOLUME 93 fL (79.0-98.0); MONOCYTES % (AUTO) 7.8 % (1.7-9.3); NEUTROPHILS # (AUTO) 11.2 K/uL (1.8-7.7); NEUTROPHILS % (AUTO) 83.3 % (40.0-70.0); PLATELET COUNT (AUTO) 90 K/uL (130-430); RED BLOOD CELL COUNT(AUTO) 2.37 MIL/uL (4.2-6.2); RED CELL DISTRIBUTION WIDTH 20.8 % (9.0-15.0); WHITE BLOOD COUNT (AUTO) 13.4 K/uL (4.8-10.8)
[2021-05-28] MEDS: ACETYLCYSTEINE 20% 4 ML VIAL (RT) INH SCH ×4 (07:46→22:51)
[2021-05-28 08:00] VITALS: BP_SYST 126
[2021-05-28 08:20] LABS: CALCIUM 8.5 mg/dL (8.4-11.0); CREATININE 0.97 mg/dL (0.55-1.30); POTASSIUM 3.3 mmol/L (3.5-5.1); TOTAL BILIRUBIN 1.4 mg/dL (0.0-1.0)
[2021-05-28] MEDS: INSULIN NPH 100 UNITS/ML 10 ML VIAL SUBCUT SCH ×2 (08:48→18:32)
[2021-05-28] MEDS: LACTULOSE 20 GM/30 ML UDC PO SCH ×3 (08:49→20:40)
[2021-05-28] MEDS: PANTOPRAZOLE SODIUM 40 MG/VIAL (PROTONIX) IVP SCH (08:49)
[2021-05-28] MEDS: FUROSEMIDE 20 MG/2 ML VIAL IVP SCH ×2 (08:50→20:41)
[2021-05-28] MEDS: BALSAM PERU/CASTOR OIL 60 GM OINT...G. TP SCH (08:51)
[2021-05-28 12:39] VITALS: BP_SYST 127
[2021-05-28] MEDS: D5NS 1,000 ML IV SCH (15:07)
[2021-05-28 16:21] VITALS: BP_SYST 125
[2021-05-28 20:00] VITALS: BP_SYST 136
[2021-05-29] MEDS: IPRATROPIUM/ALBUTEROL SULFATE 3 ML AMPUL.NEB (DUONEB) INH SCH ×7 (00:20→23:24)
[2021-05-29 00:30] VITALS: BP_SYST 140
[2021-05-29] MEDS: ACETYLCYSTEINE 20% 4 ML VIAL (RT) INH SCH ×4 (07:37→19:14)
[2021-05-29 08:00] VITALS: BP_SYST 128
[2021-05-29] MEDS: LACTULOSE 20 GM/30 ML UDC PO SCH ×3 (08:34→21:32)
[2021-05-29] MEDS: FUROSEMIDE 20 MG/2 ML VIAL IVP SCH ×2 (08:35→21:33)
[2021-05-29] MEDS: PANTOPRAZOLE SODIUM 40 MG/VIAL (PROTONIX) IVP SCH (08:35)
[2021-05-29] MEDS: BALSAM PERU/CASTOR OIL 60 GM OINT...G. TP SCH (08:35)
[2021-05-29] MEDS: INSULIN NPH 100 UNITS/ML 10 ML VIAL SUBCUT SCH ×2 (08:37→17:35)
[2021-05-29] MEDS: D5NS 1,000 ML IV SCH (08:44)
[2021-05-29 11:27] VITALS: BP_SYST 134
[2021-05-29] MEDS: INSULIN LISPRO SLIDING SCALE 100 UNITS/ML VIAL (humaLOG) SUBCUT PRN ×3 (11:34→23:40)
[2021-05-29 15:48] VITALS: BP_SYST 105
[2021-05-29 20:00] VITALS: BP_SYST 131
[2021-05-30] VITALS: BP_SYST 122
[2021-05-30] MEDS: IPRATROPIUM/ALBUTEROL SULFATE 3 ML AMPUL.NEB (DUONEB) INH SCH ×4 (03:36→15:30)
[2021-05-30] MEDS: D5NS 1,000 ML IV SCH (06:33)
[2021-05-30] MEDS: INSULIN LISPRO SLIDING SCALE 100 UNITS/ML VIAL (humaLOG) SUBCUT PRN ×4 (06:36→23:41)
[2021-05-30] MEDS: ACETYLCYSTEINE 20% 4 ML VIAL (RT) INH SCH ×3 (07:36→15:30)
[2021-05-30 08:00] VITALS: BP_SYST 126
[2021-05-30] MEDS: LACTULOSE 20 GM/30 ML UDC PO SCH ×3 (08:25→21:41)
[2021-05-30] MEDS: PANTOPRAZOLE SODIUM 40 MG/VIAL (PROTONIX) IVP SCH (08:25)
[2021-05-30] MEDS: BALSAM PERU/CASTOR OIL 60 GM OINT...G. TP SCH (08:26)
[2021-05-30] MEDS: FUROSEMIDE 20 MG/2 ML VIAL IVP SCH ×2 (08:26→21:42)
[2021-05-30] MEDS: INSULIN NPH 100 UNITS/ML 10 ML VIAL SUBCUT SCH ×3 (08:31→17:52)
[2021-05-30 12:00] VITALS: BP_SYST 114
[2021-05-30 16:32] VITALS: BP_SYST 104
[2021-05-30 20:00] VITALS: BP_SYST 119
[2021-05-30] MEDS: ACETAMINOPHEN 325 MG TABLET PO PRN (21:41)
[2021-05-31 00:10] VITALS: BP_SYST 93
[2021-05-31] MEDS: ACETYLCYSTEINE 20% 4 ML VIAL (RT) INH SCH ×5 (02:09→20:12)
[2021-05-31] MEDS: IPRATROPIUM/ALBUTEROL SULFATE 3 ML AMPUL.NEB (DUONEB) INH SCH ×8 (02:09→23:16)
[2021-05-31] MEDS: D5NS 1,000 ML IV SCH ×2 (02:30→17:21)
[2021-05-31] MEDS: INSULIN LISPRO SLIDING SCALE 100 UNITS/ML VIAL (humaLOG) SUBCUT PRN ×3 (05:49→17:15)
[2021-05-31 07:06] LABS: BASOPHILS % (AUTO) 0.4 % (0.0-2.0); EOSINOPHILS # (AUTO) 1.6 K/uL (0.0-0.4); EOSINOPHILS % (AUTO) 19.6 % (0.0-4.0); HEMATOCRIT 22.8 % (36-54); HEMOGLOBIN 7.4 g/dL (14.0-18.0); LYMPHOCYTES # (AUTO) 0.9 K/uL (1.0-5.5); MEAN CORPUSCULAR HEMOGLOBIN 31 pg (27-31); MEAN CORPUSCULAR HGB CONC 33 % (32-36); MEAN CORPUSCULAR VOLUME 96 fL (79.0-98.0); MONOCYTES # (AUTO) 0.6 K/uL (0.0-1.0); MONOCYTES % (AUTO) 7.4 % (1.7-9.3); NEUTROPHILS # (AUTO) 5.1 K/uL (1.8-7.7); NEUTROPHILS % (AUTO) 61.6 % (40.0-70.0); PLATELET COUNT (AUTO) 102 K/uL (130-430); RED BLOOD CELL COUNT(AUTO) 2.39 MIL/uL (4.2-6.2); RED CELL DISTRIBUTION WIDTH 20.9 % (9.0-15.0); WHITE BLOOD COUNT (AUTO) 8.3 K/uL (4.8-10.8)
[2021-05-31] MEDS: LACTULOSE 20 GM/30 ML UDC PO SCH ×3 (09:57→21:00)
[2021-05-31] MEDS: INSULIN NPH 100 UNITS/ML 10 ML VIAL SUBCUT SCH ×2 (09:57→17:11)
[2021-05-31] MEDS: FUROSEMIDE 20 MG/2 ML VIAL IVP SCH ×2 (09:58→21:00)
[2021-05-31] MEDS: PANTOPRAZOLE SODIUM 40 MG/VIAL (PROTONIX) IVP SCH (09:59)
[2021-05-31] MEDS: BALSAM PERU/CASTOR OIL 60 GM OINT...G. TP SCH (10:04)
[2021-05-31 11:28] VITALS: BP_SYST 123
[2021-05-31 15:05] LABS: CALCIUM 7.7 mg/dL (8.4-11.0); CREATININE 0.88 mg/dL (0.55-1.30); POTASSIUM 3.3 mmol/L (3.5-5.1)
[2021-05-31 16:00] VITALS: BP_SYST 122
[2021-05-31 19:51] VITALS: BP_SYST 134
[2021-05-31 20:20] VITALS: BP_SYST 131
[2021-06-01] MEDS: DEXTROSE 50% JECT 50 ML DISP.SYRIN IVP PRN (00:05)
[2021-06-01 00:19] VITALS: BP_SYST 128
[2021-06-01] MEDS: IPRATROPIUM/ALBUTEROL SULFATE 3 ML AMPUL.NEB (DUONEB) INH SCH (03:34)
[2021-06-01 07:40] VITALS: BP_SYST 110
== END 2021-06-01 07:50 | DRG 870 ==
LOC: SED 22:17 → STU 04-16 01:46 → SIC 04-16 01:47 → STU 04-19 19:04 → SMU 04-21 10:36 → STU 04-23 13:15 → SIC 04-23 13:58 → STU 05-14 19:06
PROVIDERS: ADMIT Internal Medicine Hospice and Palliative Medicine; ATTEND Internal Medicine Hospice and Palliative Medicine
PROC: 05HY33Z Insertion of Infusion Device into Upper Vein, Percutaneous Approach (ICD-10-PCS; 2021-04-16)
PROC: 5A1955Z Respiratory Ventilation, Greater than 96 Consecutive Hours (ICD-10-PCS; principal; 2021-04-30)
PROC: 0BH17EZ Insertion of Endotracheal Airway into Trachea, Via Natural or Artificial Opening (ICD-10-PCS; 2021-04-30)
PROC: 30233N1 Transfusion of Nonautologous Red Blood Cells into Peripheral Vein, Percutaneous Approach (ICD-10-PCS; 2021-04-30)
PROC: 0B998ZZ Drainage of Lingula Bronchus, Via Natural or Artificial Opening Endoscopic (ICD-10-PCS; 2021-05-01)
PROC: 0B948ZZ Drainage of Right Upper Lobe Bronchus, Via Natural or Artificial Opening Endoscopic (ICD-10-PCS; 2021-05-01)
PROC: 0B988ZZ Drainage of Left Upper Lobe Bronchus, Via Natural or Artificial Opening Endoscopic (ICD-10-PCS; 2021-05-01)
PROC: 0B938ZZ Drainage of Right Main Bronchus, Via Natural or Artificial Opening Endoscopic (ICD-10-PCS; 2021-05-01)
PROC: 0B978ZZ Drainage of Left Main Bronchus, Via Natural or Artificial Opening Endoscopic (ICD-10-PCS; 2021-05-01)
PROC: 0B968ZZ Drainage of Right Lower Lobe Bronchus, Via Natural or Artificial Opening Endoscopic (ICD-10-PCS; 2021-05-01)
PROC: 02HV33Z Insertion of Infusion Device into Superior Vena Cava, Percutaneous Approach (ICD-10-PCS; 2021-05-17)
PROC: 3E0336Z Introduction of Nutritional Substance into Peripheral Vein, Percutaneous Approach (ICD-10-PCS; 2021-05-24)
PROC: 0DH63UZ Insertion of Feeding Device into Stomach, Percutaneous Approach (ICD-10-PCS; 2021-05-27)
DX: A41.9 Sepsis, unspecified organism (principal); N17.0 Acute kidney failure with tubular necrosis; J96.21 Acute and chronic respiratory failure with hypoxia; R65.21 Severe sepsis with septic shock; J18.9 Pneumonia, unspecified organism; G92.8 Other toxic encephalopathy; B37.49 Other urogenital candidiasis; Z16.12 Extended spectrum beta lactamase (ESBL) resistance; E46 Unspecified protein-calorie malnutrition; E87.0 Hyperosmolality and hypernatremia; N18.5 Chronic kidney disease, stage 5; I13.2 Hypertensive heart and chronic kidney disease with heart failure and with stage 5 chronic kidney disease, or end stage renal disease; Z99.11 Dependence on respirator [ventilator] status; K72.90 Hepatic failure, unspecified without coma; K74.60 Unspecified cirrhosis of liver; B96.20 Unspecified Escherichia coli [E. coli] as the cause of diseases classified elsewhere; D63.8 Anemia in other chronic diseases classified elsewhere; D69.6 Thrombocytopenia, unspecified; E83.51 Hypocalcemia; E11.65 Type 2 diabetes mellitus with hyperglycemia; E11.22 Type 2 diabetes mellitus with diabetic chronic kidney disease; E83.39 Other disorders of phosphorus metabolism; E83.42 Hypomagnesemia; E11.649 Type 2 diabetes mellitus with hypoglycemia without coma; R00.1 Bradycardia, unspecified; E87.6 Hypokalemia; E87.8 Other disorders of electrolyte and fluid balance, not elsewhere classified; F10.20 Alcohol dependence, uncomplicated; Z20.822 Contact with and (suspected) exposure to COVID-19; R13.10 Dysphagia, unspecified; K21.9 Gastro-esophageal reflux disease without esophagitis; I50.9 Heart failure, unspecified; Y95 Nosocomial condition; Z91.19 Patient's noncompliance with other medical treatment and regimen; Z79.4 Long term (current) use of insulin; Z68.27 Body mass index [BMI] 27.0-27.9, adult; Z79.899 Other long term (current) drug therapy
CPT/HCPCS: 36415; 36600; 43246; 70450-TC; 71045; 74018; 76376; 76700-TC; 76870-TC; 80048; 80053; 80202; 81000; 82140; 82803-TC; 82962; 83605; 83735; 84100; 84484; 85007; 85025; 85027; 85610-TC; 85651-TC; 85730-TC; 86140; 86886; 86900; 86901; 86920; 87040-TC; 87070-TC; 87081; 87086; 87205-TC; 92526-GN; 92610-GN; 93005; 94002; 94003; 94640; 94668; 94760; 96361; 96365; 96367; 97110-GP; 99285; C9113; G0378; J0456; J0690; J0696; J1450; J1644; J1815; J1940; J1956; J2175; J2185; J2250; J2270; J2543; J2765; J3370; J3480; J3490; J7050; J7060; J7608; J7613; P9021; P9041; U0003